=== PATIENT | female | born 1950 | race Caucasian/White ===

== ENCOUNTER 2021-05-02 10:03 | Observation (INO) ==
[2021-05-02] MEDS ORDERED: ACTIVASE CATHFLO 12 MG in NS 250 ML IV 228 ML INTRACATH ONE (10:48)
[2021-05-02] MEDS ORDERED: ANCEF 1 GRAM IV PREMIX* 2 G/100 ML BAG IV ONE (10:57)
[2021-05-02] MEDS ORDERED: LR 1000 ML IV 1,000 ML IV ONE ×3 (10:57→16:12)
[2021-05-02 11:33] VITALS: BMI 22.7
[2021-05-02] MEDS ORDERED: HEPARIN SODIUM INJ 5000 UNITS ONE ×2 (11:33→11:54)
[2021-05-02 11:34] LABS: BASOPHILS # (AUTO) 0.1 X10^3/uL (0.0-0.1); BASOPHILS % (AUTO) 1.4 % (0.2-1.0); EOSINOPHILS # (AUTO) 0.1 x10^3/uL (0.0-0.2); EOSINOPHILS % (AUTO) 1.7 % (0.9-2.9); HEMATOCRIT 41.7 % (36.0-47.0); HEMOGLOBIN 14.1 g/dL (12.0-16.0); LYMPHOCYTES # (AUTO) 1.8 X10^3/uL (1.3-2.9); LYMPHOCYTES % (AUTO) 30.3 % (21.0-51.0); MEAN CORPUSCULAR HEMOGLOBIN 31.4 pg (27.0-34.0); MEAN CORPUSCULAR HGB CONC 33.9 g/dL (33.0-35.0); MEAN CORPUSCULAR VOLUME 92.8 fL (80.0-100.0); MEAN PLATELET VOLUME 7.7 fL (7.4-11.0); MONOCYTES # (AUTO) 0.3 x10^3/uL (0.3-0.8); NEUTROPHILS # (AUTO) 3.6 x10^3/uL (2.2-4.8); NEUTROPHILS % (AUTO) 61.6 % (42.0-75.0); PLATELET COUNT 183 X10^3/uL (150.0-450.0); RED BLOOD COUNT 4.49 X10^6/uL (3.5-5.4); WHITE BLOOD COUNT 5.9 X10^3/uL (3.6-10.0)
[2021-05-02] MEDS ORDERED: HEPARIN SODIUM IN D5W 75,000 UNITS/1,500 ML BAG ONE (11:34)
[2021-05-02] MEDS ORDERED: MARCAINE or SENSORCAINE 0.25% WITH EPI IJ ONE ×2 (11:34→11:57)
[2021-05-02 11:47] LABS: ALANINE AMINOTRANSFERASE 13 Units/L (12-78); ALBUMIN 3.7 g/dL (3.4-5.0); ALKALINE PHOSPHATASE 99 Units/L (46-116); ASPARTATE AMINO TRANSFERASE 11 Units/L (15-37); BLOOD UREA NITROGEN 11 mg/dL (7-18); CALCIUM 9.1 mg/dL (8.5-10.1); CARBON DIOXIDE 30.3 mmol/L (21-32); CHLORIDE 106 mmol/L (98-107); CREATININE 0.95 mg/dL (0.55-1.02); SODIUM 141 mmol/L (136-145); TOTAL PROTEIN 8.2 g/dL (6.4-8.2); eGFR NON BLACK RACES > 60 (>60)
[2021-05-02] MEDS ORDERED: HEPARIN SODIUM IN D5W 100,000 UNITS/2,000 ML BAG ONE (11:54)
[2021-05-02] MEDS ORDERED: ACTIVASE CATHFLO ONE (11:54)
[2021-05-02] MEDS ORDERED: NS 1000 ML 1,000 ML ONE ×2 (11:55→16:19)
[2021-05-02] MEDS ORDERED: FENTANYL INJ 100 mcg ONE (12:19)
[2021-05-02] MEDS ORDERED: SUPRANE ONE (12:35)
[2021-05-02] MEDS ORDERED: EPHEDRINE SULFATE INJ ONE (12:35)
[2021-05-02] MEDS ORDERED: NEO-SYNEPHRINE INJ ONE (12:35)
[2021-05-02] MEDS ORDERED: BARHEMSYS INJ IVP PRN (15:35)
[2021-05-02] MEDS ORDERED: ZOFRAN INJ 4 MG VIAL IVP PRN (15:35)
[2021-05-02] MEDS ORDERED: REGLAN INJ 10 MG VIAL IVP PRN (15:35)
[2021-05-02] MEDS ORDERED: PHENERGAN INJ 25 MG IM PRN (15:35)
[2021-05-02] MEDS ORDERED: BENADRYL INJ 50 MG VIAL IVP PRN (15:35)
[2021-05-02] MEDS ORDERED: DILAUDID INJ IVP PRN (15:35)
--- NOTE | 2021-05-02 16:06 | OR.IMMED ---
IMMEDIATE POST-OP NOTE Immediate Post-Op Note Pre-Op Diagnosis: s/p athrectomy right leg now clotted Post-Op Diagnosis: same Procedure: attempted intervention right SFA from above and below, unsuccessful Description of Procedure: see operative summary Surgeon/Toddler Lead Teacher: Janie Findings: as above Specimens Removed: none Estimated Blood Loss: 50 cc Drains: NONE Complications: none Progress Notes: Unable to get wire across takeoff of the left SFA from above or by pedal access. Discharge Progress Notes: admit for observation Condition: Stable Post Hospital Plans and Medications: Discussed with daughter, Will attempt access with wire via popliteal artery next week, Final Diagnosis: left SFA occlusion, ischemic left leg.
[2021-05-02] MEDS ORDERED: PERCOCET TAB 5/325 MG PO PRN (16:24)
--- NOTE | 2021-05-02 16:39 | DR.OPNOTE ---
OP NOTE Pre-Op Diagnosis: Occluded left SFA, ischemic left leg Post-Op Diagnosis: same Procedure Date Date Of Procedure: 05/02/21 Procedure: The patient was taken to the OR and placed in the supine position .Both groins and entire right leg prepped and draped in sterile fashion. Time out for the procedure was done. GIVEN IV sedation . Sedation supervision carried out by me . Ultrasound used to identify the left common femoral artery and the skin over it infiltrated with 0.5 % Marcaine with epinephrine . Ultrasound used to guide puncture of the right left common femoral artery and 0.035 inch Advantage guidewire placed . 5 Slovenian introducer sheath placed over the 0.035 inch guidewire into the left common femoral artery and the RIM catheter placed over the guidewire and placed into the take off of the right limb of the aortic stent graft and power injection used for arteriogram. Patient given 5000 units IV heparin. Heparin, additional 3000 units given at 1 hour. Ultrasonography then used to guide puncture of the right common from artery in antegrade fashion and guidewire placed. 5 Slovenian sheath placed over the guidewire into the right common femoral artery. Diagnostic arteriogram done of right leg and showed right superficial femoral artery occluded at its origin . Distal popliteal artery patent but with some clot in the popliteal artery and runoff via the right anterior tibial artery. Guidewire was able to get through the cap of the right superficial femoral artery at its take off but appeared to go subintimal and I could not get back in the lumen in the distal superficial femoral artery. From the ankle ,using ultrasound, I attempted to puncture the dorsalis pedis, anterior tibial and posterior tibial arteries that were unsuccessful. I could access the vein but not the artery. Repeated attempts at cannulation of the take off of the right superficial femoral artery and repeat ultrasound puncture of the right common femoral artery in another location was still unsuccessful and I continued to dissect in the subintimal plane. For this reason I decided to stop and will plan attempt via the right popliteal artery in the prone position. I will discuss this with the patient and her family. Type of Anesthesia: Local and General Anesthetic w/ETT Anesthesia Comment: began as MAC Findings: With significant vascular disease both for lower extremities. Status post atherectomy and drug-coated balloon angioplasty right superficial femoral artery and balloon angioplasty right anterior tibil artery several weeks ago followed sequentially by intervention of the left leg a couple weeks later. The left leg has continued to do well with improvement in the ankle brachial index. Had been complaining of pain of the right leg with ankle brachial index of 0.[address] angiogram showing complete occlusion of the right superficial femoral artery beginning at the take off from the common femoral artery. Also with evidence of clot in the right popliteal artery. Patient has been on Plavix since the first procedure. Unable to acess the right SFA from above in antegrade fashion of from right pedal access. 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 Specimen/Pathology: none Type of Fluids Used:: Normal Saline and Lactated Ringers EBL: 50 cc Drains/Tubes Placed: None Drains/Tubes Comment: none Cultures: none Complications:: none Needle/Sponge Count:: correct Disposition/Condition: Pt. tolerated procedure without difficulty. Extubated in the OR and taken to PACU in stable condition.
[2021-05-02] MEDS ORDERED: LR 1000 ML IV 1,000 ML IV SCH (17:00)
[2021-05-02 17:36] LABS: BASOPHILS # (AUTO) 0.1 X10^3/uL (0.0-0.1); BASOPHILS % (AUTO) 0.8 % (0.2-1.0); EOSINOPHILS # (AUTO) 0.1 x10^3/uL (0.0-0.2); EOSINOPHILS % (AUTO) 1.7 % (0.9-2.9); HEMATOCRIT 34.5 % (36.0-47.0); HEMOGLOBIN 11.6 g/dL (12.0-16.0); LYMPHOCYTES # (AUTO) 1.9 X10^3/uL (1.3-2.9); LYMPHOCYTES % (AUTO) 22.4 % (21.0-51.0); MEAN CORPUSCULAR HEMOGLOBIN 31.3 pg (27.0-34.0); MEAN CORPUSCULAR HGB CONC 33.5 g/dL (33.0-35.0); MEAN CORPUSCULAR VOLUME 93.6 fL (80.0-100.0); MEAN PLATELET VOLUME 7.8 fL (7.4-11.0); MONOCYTES # (AUTO) 0.4 x10^3/uL (0.3-0.8); MONOCYTES % (AUTO) 5.2 % (0.0-13.0); NEUTROPHILS # (AUTO) 5.8 x10^3/uL (2.2-4.8); NEUTROPHILS % (AUTO) 69.9 % (42.0-75.0); PLATELET COUNT 142 X10^3/uL (150.0-450.0); RED BLOOD COUNT 3.69 X10^6/uL (3.5-5.4); RED CELL DISTRIBUTION WIDTH 14.2 % (11.6-16.5); WHITE BLOOD COUNT 8.3 X10^3/uL (3.6-10.0)
[2021-05-02] MEDS ORDERED: CHECK PATCH XX SCH (21:00)
[2021-05-02] MEDS: CATAPRES TAB 0.1 MG PO SCH ×2 (21:41→21:51)
[2021-05-02] MEDS: NEURONTIN CAP 100 MG PO SCH (21:58)
[2021-05-03] MEDS: NEURONTIN CAP 100 MG PO SCH (05:48)
[2021-05-03] MEDS ORDERED: NICOTINE PATCH TD SCH (09:00)
[2021-05-03] MEDS ORDERED: LIPITOR TAB 40 MG PO SCH (09:00)
[2021-05-03] MEDS ORDERED: DIOVAN TAB 80 MG PO SCH (09:00)
[2021-05-03] MEDS: CATAPRES TAB 0.1 MG PO SCH (09:43)
--- NOTE | 2021-05-03 10:17 | PCM.DCPLAN ---
DISCHARGE SUMMARY Admission Date Date of Admission: 05/02/21 Admission Diagnoses (1) Critical limb ischemia with history of revascularization of same extremity: Status: Acute Discharge Diagnoses Discharge Diagnosis: same Discharge Medications Discharge Medications: Prescriptions: continue all home meds Hospital Course Vital Signs: Temperature 98.1 F Pulse Rate [Bilateral Radial] 89 Pulse Rate 82 Respiratory Rate 20 Blood Pressure [Right Arm] 118/62 Blood Pressure 117/63 O2 Sat by Pulse Oximetry 99 Latest Lab Results: Laboratory Last Values WBC 8.3 X10^3/uL (3.6-10.0) 05/02/21 17:17 RBC 3.69 X10^6/uL (3.5-5.4) 05/02/21 17:17 Hgb 11.6 g/dL (12.0-16.0) L D 05/02/21 17:17 Hct 34.5 % (36.0-47.0) L 05/02/21 17:17 MCV 93.6 fL (80.0-100.0) 05/02/21 17:17 MCH 31.3 pg (27.0-34.0) 05/02/21 17:17 MCHC 33.5 g/dL (33.0-35.0) 05/02/21 17:17 RDW 14.2 % (11.6-16.5) 05/02/21 17:17 Plt Count 142 X10^3/uL (150.0-450.0) L 05/02/21 17:17 MPV 7.8 fL (7.4-11.0) 05/02/21 17:17 Neut % (Auto) 69.9 % (42.0-75.0) 05/02/21 17:17 Lymph % (Auto) 22.4 % (21.0-51.0) 05/02/21 17:17 Monroe % (Auto) 5.2 % (0.0-13.0) 05/02/21 17:17 Eos % (Auto) 1.7 % (0.9-2.9) 05/02/21 17:17 Baso % (Auto) 0.8 % (0.2-1.0) 05/02/21 17:17 Neut # (Auto) 5.8 x10^3/uL (2.2-4.8) H 05/02/21 17:17 Lymph # (Auto) 1.9 X10^3/uL (1.3-2.9) 05/02/21 17:17 Monroe # (Auto) 0.4 x10^3/uL (0.3-0.8) 05/02/21 17:17 Eos # (Auto) 0.1 x10^3/uL (0.0-0.2) 05/02/21 17:17 Baso # (Auto) 0.1 X10^3/uL (0.0-0.1) 05/02/21 17:17 Absolute Nucleated RBC 0.1 /100WBC 05/02/21 17:17 Sodium 141 mmol/L (136-145) 05/02/21 11:25 Corrected Sodium TNP 05/02/21 11:25 Potassium 4.7 mmol/L (3.5-5.1) 05/02/21 11:25 Chloride 106 mmol/L (98-107) 05/02/21 11:25 Carbon Dioxide 30.3 mmol/L (21-32) 05/02/21 11:25 BUN 11 mg/dL (7-18) 05/02/21 11:25 Creatinine 0.95 mg/dL (0.55-1.02) 05/02/21 11:25 Est GFR (MDRD) Af Amer > 60 (>60) 05/02/21 11:25 Est GFR (MDRD) Non-Af > 60 (>60) 05/02/21 11:25 Glucose 100 mg/dL (65-99) H 05/02/21 11:25 Calcium 9.1 mg/dL (8.5-10.1) 05/02/21 11:25 Corrected Calcium TNP 05/02/21 11:25 Total Bilirubin 0.30 mg/dL (0.2-1.0) 05/02/21 11:25 AST 11 Units/L (15-37) L 05/02/21 11:25 ALT 13 Units/L (12-78) 05/02/21 11:25 Alkaline Phosphatase 99 Units/L (46-116) 05/02/21 11:25 Total Protein 8.2 g/dL (6.4-8.2) 05/02/21 11:25 Albumin 3.7 g/dL (3.4-5.0) 05/02/21 11:25 Globulin 4.5 g/dL (2.5-4.5) 05/02/21 11:25 Albumin/Globulin Ratio 0.8 Ratio (1.1-2.1) L 05/02/21 11:25 SARS CoV-2 RNA Rapid ANKIT Negative (NEGATIVE) 05/02/21 11:13 Hospital Course: 70-year-old female who had had bilateral lower extremity atherectomy and drug- coated balloon angioplasty in the past several weeks. History of aortic stent graft therefore both legs were done in antegrade fashion. Complained of pain of the right leg and CT angiogram confirmed occlusion of the right superficial femoral artery at the take off all the way through the popliteal artery with clot in the popliteal artery . I attempted antegrade intervention but could not get a wire down the superficial femoral artery as it went subintimaland I could get back in the lumen and I could not access from pedal access. Patient's hemoglobin post procedures is 11.6. Her foot is cool and has no tissue loss but will need to be addressed. I plan is to bring her back on Friday and approach this in the prone position with needle stick to the right popliteal area to get a wire across the area of occlusion and consider either AngioJet, EKOS and or stenting or combination of all of these. The patient her family understands and agrees to this. I discussed options of transferred to another facility but they want me to do it as I have experience with this. There is no guarantee of success however. Instructions Instructions: Angiogram Angiogram, Care After, [id number] Forms: Excuse From Work or School Precautions for COVID19 Patient Portal Social Distancing
[2021-05-03 12:15] VITALS: BP 121/60
== END 2021-05-03 12:20 | disposition home or self-care (01) ==
LOC: SURG1 10:03 → MED/SURG 10:03
PROVIDERS: ADMIT Surgery; ATTEND Surgery
DX: I10 Essential (primary) hypertension; I74.3 Embolism and thrombosis of arteries of the lower extremities; Z20.822 Contact with and (suspected) exposure to COVID-19; Z87.898 Personal history of other specified conditions; Z72.0 Tobacco use; I71.3 Abdominal aortic aneurysm, ruptured; R60.0 Localized edema; I70.222 Atherosclerosis of native arteries of extremities with rest pain, left leg

== ENCOUNTER 2021-05-07 10:25 | Inpatient (IN) ==
[2021-05-07] MEDS ORDERED: ANCEF 1 GRAM IV PREMIX* 2 G/100 ML BAG IV ONE (11:02)
[2021-05-07] MEDS ORDERED: LR 1000 ML IV 1,000 ML IV ONE (11:02)
[2021-05-07 11:19] VITALS: BMI 22.7
[2021-05-07] MEDS ORDERED: FENTANYL INJ 100 mcg ONE (11:51)
[2021-05-07] MEDS ORDERED: HEPARIN SODIUM INJ 5000 UNITS ONE (13:41)
[2021-05-07] MEDS ORDERED: HEPARIN SODIUM IN D5W 75,000 UNITS/1,500 ML BAG ONE (13:41)
[2021-05-07] MEDS ORDERED: MARCAINE or SENSORCAINE 0.25% WITH EPI IJ ONE (13:41)
[2021-05-07] MEDS ORDERED: ZEMURON 50 MG VIAL ONE (13:49)
[2021-05-07] MEDS ORDERED: BRIDION ONE (13:49)
[2021-05-07] MEDS ORDERED: VERSED ONE (14:05)
[2021-05-07] MEDS ORDERED: SUPRANE ONE (14:05)
[2021-05-07] MEDS ORDERED: DIPRIVAN VIAL ONE (14:05)
[2021-05-07] MEDS ORDERED: ZOFRAN INJ 4 MG VIAL ONE (14:05)
[2021-05-07] MEDS ORDERED: EPHEDRINE SULFATE INJ ONE (14:05)
[2021-05-07] MEDS ORDERED: NS 1000 ML 1,000 ML ONE (14:35)
[2021-05-07] MEDS ORDERED: HEPARIN SODIUM IN D5W 25,000 UNITS/500 ML BAG ONE ×2 (14:55→16:18)
[2021-05-07] MEDS ORDERED: NS 500 ML IV 500 ML IV ONE (16:19)
[2021-05-07] MEDS ORDERED: ACTIVASE CATHFLO ONE (16:19)
[2021-05-07] MEDS ORDERED: ACTIVASE CATHFLO 12 MG in NS 250 ML IV 228 ML INTRACATH ONE ×6 (16:30→17:12)
[2021-05-07] MEDS: ACTIVASE CATHFLO 12 MG in NS 250 ML IV 228 ML INTRACATH SCH (16:30)
[2021-05-07] MEDS ORDERED: PHENERGAN INJ 25 MG IM PRN (16:52)
[2021-05-07] MEDS ORDERED: DILAUDID INJ IVP PRN (16:52)
[2021-05-07] MEDS ORDERED: ZOFRAN INJ 4 MG VIAL IVP PRN (16:52)
[2021-05-07] MEDS ORDERED: BARHEMSYS INJ IVP PRN (16:52)
[2021-05-07] MEDS ORDERED: REGLAN INJ 10 MG VIAL IVP PRN (16:52)
[2021-05-07] MEDS ORDERED: BENADRYL INJ 50 MG VIAL IVP PRN (16:52)
[2021-05-07] MEDS ORDERED: HEPARIN SODIUM IN D5W 25,000 UNITS/500 ML BAG INTRACATH PRN ×2 (17:07→17:20)
--- NOTE | 2021-05-07 17:33 | OR.IMMED ---
IMMEDIATE POST-OP NOTE Immediate Post-Op Note Pre-Op Diagnosis: Critical limb ischemia right leg, thrombosis right superficial femoral artery Post-Op Diagnosis: same Procedure: Retrograde approach of right superficial femoral artery from the right popliteal artery in the prone position. With placement of wire into the right common iliac artery and stent. AngioJet mechanical from back to me right superficial femoral artery, until arteriogram, placement of EKOS thrombolytic catheter for overnight infusion of TPA and reassessment of artery tomorrow. Description of Procedure: see operative summary Surgeon/Senior Procurement Manager: Janie Findings: thrombosis right SFA from takeoff to popliteal artery Specimens Removed: clot from SFA Estimated Blood Loss: 50 cc Drains: NONE Complications: none Admit to ICU for overnight intra-arterial thrombolysis of right SFA Condition: Stable Post Hospital Plans and Medications: TPA by EKOS protocol overnight Final Diagnosis: as above.
[2021-05-07] MEDS ORDERED: NS 500 ML IV 500 ML IV SCH (18:00)
[2021-05-07] MEDS: LR 1000 ML IV 1,000 ML IV SCH (18:07)
[2021-05-07 19:03] LABS: BASOPHILS # (AUTO) 0.1 X10^3/uL (0.0-0.1); BASOPHILS % (AUTO) 0.7 % (0.2-1.0); EOSINOPHILS # (AUTO) 0.2 x10^3/uL (0.0-0.2); EOSINOPHILS % (AUTO) 3.3 % (0.9-2.9); HEMATOCRIT 28.5 % (36.0-47.0); HEMOGLOBIN 9.5 g/dL (12.0-16.0); LYMPHOCYTES # (AUTO) 1.9 X10^3/uL (1.3-2.9); LYMPHOCYTES % (AUTO) 27.9 % (21.0-51.0); MEAN CORPUSCULAR HEMOGLOBIN 31.5 pg (27.0-34.0); MEAN CORPUSCULAR HGB CONC 33.4 g/dL (33.0-35.0); MEAN CORPUSCULAR VOLUME 94.1 fL (80.0-100.0); MONOCYTES # (AUTO) 0.5 x10^3/uL (0.3-0.8); MONOCYTES % (AUTO) 6.9 % (0.0-13.0); NEUTROPHILS # (AUTO) 4.2 x10^3/uL (2.2-4.8); NEUTROPHILS % (AUTO) 61.2 % (42.0-75.0); PLATELET COUNT 166 X10^3/uL (150.0-450.0); RED BLOOD COUNT 3.03 X10^6/uL (3.5-5.4); RED CELL DISTRIBUTION WIDTH 13.7 % (11.6-16.5); WHITE BLOOD COUNT 6.9 X10^3/uL (3.6-10.0)
[2021-05-07] MEDS: CATAPRES TAB 0.1 MG PO SCH (20:26)
[2021-05-07] MEDS: NEURONTIN CAP 100 MG PO SCH ×2 (21:54→22:16)
--- NOTE | 2021-05-07 22:26 | DR.OPNOTE ---
OP NOTE Pre-Op Diagnosis: Limb threatening ischemia right leg Post-Op Diagnosis: same Procedure Date Date Of Procedure: 05/07/21 Procedure: The patient was taken to the operating suite and placed in the supine position and general endotracheal anesthesia induced. Patient rolled over in the prone position and the entire right leg prepped and draped in sterile fashion. Ultrasonography used to identify the right popliteal artery and the skin overlying it infiltrated with 0.5 % Marcaine with epinephrine. Ultrasonography used to guide puncture of the right popliteal artery and a 0.014 inch guidewire placed and skin over the wire incised and a micro sheath placed. The 0.014 inch guidewire exchanged for a 0.035 inch guidewire and the micro sheath exchanged for a 5 Syriac short vascular sheath. Trailblazer catheter was used to perform diagnostic arteriogram of the right superficial femoral artery showing significant clot in the supers femoral artery. I was able to guide the guidewire all the way into the right common iliac artery through the previously placed aortic and iliac stent graft. Patient was given 5000 units of IV heparin. At this point we placed the [employer] AngioJet device over the 0.035 inch guidewire and performed mechanical thrombolysis of the right superficial femoral artery going antegrade and retrograde times 2 passes each. Repeat arteriogram still showed the clot in the right SFA and we alternated between filling the right profunda and the right proximal superficial femoral artery. For this reason an EKOS catheter of 50 cm was placed over the guidewire over the length of the entire right superficial femoral artery and the wire removed and the inner cannula for the sheath placed. 3 mg of TPA placed through the drug port and this hooked up to a drip of TPA at 1mg/hr . Coolant was placed in the coolant port at 35 mL and heparin through the side port of the vascular sheath in the popliteal artery to run at 500 units of heparin per hour. Dressing applied the patient taken to the ICU for further care after extubation. She tolerated extubation well. In the recovery room the patient had good Doppler signal in the left posterior tibial but I could not get good signals of either the dorsalis pedis or the posterior tibial on the right leg The patient will need thrombolysis overnight and we will repeat studies in 24 to 48 hours. Type of Anesthesia: Local and General Anesthetic w/ETT Anesthesia Comment: Patient done in the prone position Findings: thrombosis of right superficial femoral artery from the take off of the right SFA to the popliteal artery. Specimen/Pathology: none Type of Fluids Used:: Lactated Ringers EBL: 50 cc Drains/Tubes Placed: Suarez (Remained for thrombolysis) Complications:: none Needle/Sponge Count:: correct Disposition/Condition: Pt. tolerated procedure without difficulty. Taken to PACU in stable condition.
[2021-05-07] MEDS: DILAUDID INJ IVP PRN (23:49)
[2021-05-08] MEDS: DILAUDID INJ IVP PRN ×3 (03:49→13:15)
[2021-05-08] MEDS: ACTIVASE CATHFLO 12 MG in NS 250 ML IV 228 ML INTRACATH SCH (03:53)
[2021-05-08] MEDS: LR 1000 ML IV 1,000 ML IV SCH ×2 (04:37→17:17)
[2021-05-08] MEDS: NS 500 ML IV 500 ML IV SCH ×2 (05:53→08:22)
[2021-05-08 06:18] LABS: BASOPHILS % (AUTO) 0.4 % (0.2-1.0); EOSINOPHILS % (AUTO) 0.6 % (0.9-2.9); HEMATOCRIT 26.7 % (36.0-47.0); LYMPHOCYTES # (AUTO) 0.5 X10^3/uL (1.3-2.9); MEAN CORPUSCULAR HEMOGLOBIN 31.5 pg (27.0-34.0); MEAN CORPUSCULAR HGB CONC 33.8 g/dL (33.0-35.0); MEAN PLATELET VOLUME 7.8 fL (7.4-11.0); MONOCYTES # (AUTO) 0.2 x10^3/uL (0.3-0.8); MONOCYTES % (AUTO) 3.6 % (0.0-13.0); NEUTROPHILS # (AUTO) 5.9 x10^3/uL (2.2-4.8); NEUTROPHILS % (AUTO) 87.4 % (42.0-75.0); PLATELET COUNT 147 X10^3/uL (150.0-450.0); RED BLOOD COUNT 2.87 X10^6/uL (3.5-5.4); RED CELL DISTRIBUTION WIDTH 14.2 % (11.6-16.5); WHITE BLOOD COUNT 6.8 X10^3/uL (3.6-10.0)
[2021-05-08 12:33] LABS: BASOPHILS % (AUTO) 0.5 % (0.2-1.0); EOSINOPHILS % (AUTO) 0.3 % (0.9-2.9); HEMOGLOBIN 9.5 g/dL (12.0-16.0); LYMPHOCYTES % (AUTO) 15.6 % (21.0-51.0); MEAN CORPUSCULAR HEMOGLOBIN 31.4 pg (27.0-34.0); MEAN CORPUSCULAR HGB CONC 33.9 g/dL (33.0-35.0); MEAN CORPUSCULAR VOLUME 92.6 fL (80.0-100.0); MEAN PLATELET VOLUME 8.4 fL (7.4-11.0); MONOCYTES # (AUTO) 0.3 x10^3/uL (0.3-0.8); MONOCYTES % (AUTO) 5.1 % (0.0-13.0); NEUTROPHILS # (AUTO) 4.9 x10^3/uL (2.2-4.8); NEUTROPHILS % (AUTO) 78.5 % (42.0-75.0); PLATELET COUNT 135 X10^3/uL (150.0-450.0); RED BLOOD COUNT 3.03 X10^6/uL (3.5-5.4); RED CELL DISTRIBUTION WIDTH 14.1 % (11.6-16.5); WHITE BLOOD COUNT 6.2 X10^3/uL (3.6-10.0)
[2021-05-08] MEDS ORDERED: HEPARIN SODIUM INJ 5000 UNITS ONE (13:17)
[2021-05-08] MEDS ORDERED: MARCAINE or SENSORCAINE 0.25% WITH EPI IJ ONE (13:17)
[2021-05-08] MEDS ORDERED: HEPARIN SODIUM IN D5W 75,000 UNITS/1,500 ML BAG ONE (13:18)
[2021-05-08] MEDS ORDERED: FENTANYL INJ 100 mcg ONE (13:20)
[2021-05-08] MEDS ORDERED: EPHEDRINE SULFATE INJ ONE (15:04)
[2021-05-08] MEDS ORDERED: PROTAMINE SULFATE 50 MG VIAL ONE (15:04)
[2021-05-08] MEDS ORDERED: VERSED ONE (15:04)
[2021-05-08] MEDS ORDERED: ZOFRAN INJ 4 MG VIAL ONE (15:04)
[2021-05-08] MEDS ORDERED: NEO-SYNEPHRINE INJ ONE (15:04)
[2021-05-08] MEDS ORDERED: DIPRIVAN VIAL ONE (15:04)
[2021-05-08] MEDS ORDERED: XYLOCAINE 2 % (PLAIN) ONE (15:04)
[2021-05-08] MEDS ORDERED: ZEMURON 50 MG VIAL ONE (15:04)
[2021-05-08] MEDS ORDERED: LTA KIT LIDOCAINE 4% ONE (15:04)
[2021-05-08] MEDS: NEURONTIN CAP 100 MG PO SCH ×2 (15:15→22:57)
[2021-05-08] MEDS: CATAPRES TAB 0.1 MG PO SCH ×2 (15:15→22:56)
[2021-05-08] MEDS: LIPITOR TAB 40 MG PO SCH (15:16)
[2021-05-08] MEDS: DIOVAN TAB 80 MG PO SCH (15:16)
[2021-05-08] MEDS ORDERED: BETADINE SOLN ONE (15:29)
[2021-05-08] MEDS ORDERED: NS 1000 ML 1,000 ML ONE (15:45)
--- NOTE | 2021-05-08 16:41 | OR.IMMED ---
IMMEDIATE POST-OP NOTE Immediate Post-Op Note Pre-Op Diagnosis: Ischemic right leg with evidence of thrombosis and possible pr oximal intimal flap. Post-Op Diagnosis: same Procedure: On table arteriogram of the right iliac vessels in the right common femoral superficial femoral arteries as well as the right profunda.. Intravascular U/S right SFA, common femoral and right iliac arteries. Description of Procedure: see operative summary Surgeon/Fundraising Coordinator: Janie Findings: Improvement of resolution of clot in the mid-to distal superficial femoral artery. Still with evidence of possible intimal flap and the proximal common from artery with limitation of flow. Specimens Removed: none Estimated Blood Loss: minimal Complications: none Discharge Progress Notes: Will discuss options with patient and family Condition: Stable Final Diagnosis: as above
[2021-05-08] MEDS: PERCOCET TAB 5/325 MG PO PRN (22:15)
[2021-05-09] MEDS: LR 1000 ML IV 1,000 ML IV SCH ×2 (03:30→10:44)
[2021-05-09] MEDS: PERCOCET TAB 5/325 MG PO PRN (05:15)
[2021-05-09] MEDS: DIOVAN TAB 80 MG PO SCH (08:35)
[2021-05-09] MEDS: NEURONTIN CAP 100 MG PO SCH (08:35)
[2021-05-09] MEDS: LIPITOR TAB 40 MG PO SCH (08:35)
[2021-05-09] MEDS: CATAPRES TAB 0.1 MG PO SCH ×2 (08:35→08:43)
[2021-05-09] MEDS ORDERED: LOVENOX INJ 40 MG SYR SC SCH (09:00)
--- NOTE | 2021-05-09 10:46 | DR.OPNOTE ---
OP NOTE Pre-Op Diagnosis: Thrombosis right superficial femoral artery after attempt to cross complet Post-Op Diagnosis: same, intimal flap of right common femoral artery. Procedure Date Date Of Procedure: 05/08/21 Procedure: This patient was taken to the operating suite and general endotracheal anesthesia induced. She was placed in the prone position as she had a vascular access catheter in the right popliteal artery with an EKOS thrombolytic catheter in place that had been infusing TPA overnight .' TPA had been turned off several hours before. Timeout for the procedure obtained. The thrombolytic catheter was removed and exchanged for a 0.018 inch guidewire which was placed all the way into the right common iliac stent. Trailblazer catheter placed over the wire and the wire removed. Arteriogram performed through thettrailblazer catheter starting in the common iliac artery showed good flow in the common iliac artery with good flow in the large right profunda with reconstitution of flow in the mid-superficial femoral artery with no evidence of significant thrombosis. The proximal common femoral artery could not be seen well. At this point a 0.018 inch OPTi cross vascular ultrasound probe was placed over the wire and intravascular ultrasound carried out showing the wire to be true lumen from where we entered the popliteal artery all the way to the common femoral artery. Although it appeared to be in the lumen there was a significant flap in the common femoral artery with abnormal appearing flow of the common femoral artery and normal flow in the external iliac iliac artery.At this point I made a decisions not to place stents or balloon this as is it would possibly negatively impact my decision-making process in the future. The plan is for open right femoral endarterectomy and patch angioplasty and at that time perform additional arteriograms to see if additional procedures need to be done. The superficial femoral artery has already been ballooned open with a drug-coated balloon therefore it should do well. Her foot remains warm and is not in jeopardy at this time. Type of Anesthesia: General Anesthetic w/ETT Findings: thrombolysis has cleaned up right SFA thrombosis, IVUS showed intimal flap of the right common femoral artery which I could not get back into true lumen of the right common femoral artery. right foot is warm probably due to flow from the large right profunda artery. Specimen/Pathology: none Type of Fluids Used:: Lactated Ringers Total Amount of Fluid Infused:: 700 Urine output: 30 EBL: 25 Drains/Tubes Placed: None Complications:: none Needle/Sponge Count:: correct Disposition/Condition: Pt. tolerated procedure without difficulty. Extubated in the OR and taken to PACU in stable condition.
--- NOTE | 2021-05-09 17:22 | PCM.DCPLAN ---
DISCHARGE SUMMARY Admission Date Date of Admission: 05/07/21 Discharge Date Discharge Date: 05/09/21 Admission Diagnoses (1) Critical limb ischemia with history of revascularization of same extremity: Status: Acute Discharge Diagnoses Discharge Diagnosis: same Discharge Medications Discharge Medications: Home Medication List atorvastatin 40 mg PO HS 05/08/21 [History] gabapentin 100 mg PO TID 05/08/21 [History] oxycodone-acetaminophen [Percocet] 1 tab PO Q6H PRN #40 tab MDD 4 05/09/21 [Rx] oxycodone-acetaminophen [Percocet] 1 tab PO Q6H PRN #40 tab MDD 6 05/09/21 [Rx] Prescriptions: oxycodone-acetaminophen [Percocet] Wilver Lima oxycodone-acetaminophen [Percocet] Wilver Lima Hospital Course Vital Signs: Temperature 99.1 F Pulse Rate [Left Radial] 86 Pulse Rate 89 Respiratory Rate 18 Blood Pressure [Right Arm] 109/53 Blood Pressure 111/61 O2 Sat by Pulse Oximetry 93 Latest Lab Results: Laboratory Last Values WBC 6.2 X10^3/uL (3.6-10.0) 05/08/21 11:22 RBC 3.03 X10^6/uL (3.5-5.4) L 05/08/21 11:22 Hgb 9.5 g/dL (12.0-16.0) L 05/08/21 11:22 Hct 28.0 % (36.0-47.0) L 05/08/21 11:22 MCV 92.6 fL (80.0-100.0) 05/08/21 11:22 MCH 31.4 pg (27.0-34.0) 05/08/21 11:22 MCHC 33.9 g/dL (33.0-35.0) 05/08/21 11:22 RDW 14.1 % (11.6-16.5) 05/08/21 11:22 Plt Count 135 X10^3/uL (150.0-450.0) L 05/08/21 11:22 MPV 8.4 fL (7.4-11.0) 05/08/21 11:22 Neut % (Auto) 78.5 % (42.0-75.0) H 05/08/21 11:22 Lymph % (Auto) 15.6 % (21.0-51.0) L 05/08/21 11:22 Dixie % (Auto) 5.1 % (0.0-13.0) 05/08/21 11:22 Eos % (Auto) 0.3 % (0.9-2.9) L 05/08/21 11:22 Baso % (Auto) 0.5 % (0.2-1.0) 05/08/21 11:22 Neut # (Auto) 4.9 x10^3/uL (2.2-4.8) H 05/08/21 11:22 Lymph # (Auto) 1.0 X10^3/uL (1.3-2.9) L 05/08/21 11:22 Dixie # (Auto) 0.3 x10^3/uL (0.3-0.8) 05/08/21 11:22 Eos # (Auto) 0.0 x10^3/uL (0.0-0.2) 05/08/21 11:22 Baso # (Auto) 0.0 X10^3/uL (0.0-0.1) 05/08/21 11:22 Absolute Nucleated RBC 0.1 /100WBC 05/08/21 11:22 APTT 29.5 SECONDS (22.9-36.5) 05/08/21 11:22 PTT Comment - 05/08/21 11:22 Fibrinogen 263 mg/dL (239-489) 05/08/21 11:22 Hospital Course: 70-year-old female who had a history of rest pain and claudication of both lower extremities who underwent antegrade approach with atherectomy and drug-coated balloon angioplasty of vessels of both lower extremities several weeks previously. Anterior approach was done because of an aortic stent graft to repair a ruptured abdominal aortic aneurysm from the past. The left leg has done well and ankle brachial index is near-normal now .She complained of pain of the right leg and study showed evidence of complete occlusion of the right superficial femoral artery beginning at the take off from the common femoral artery. Attempt last week was done in antegrade fashion but I could not get out of the subintimal flap. She was brought back and underwent placement of the wire through the right popliteal artery using ultrasound guidance. I could get the wire up into the stent of the right common iliac. She underwent thrombolysis of the right superficial femoral artery overnight using TPA and the EKOS catheter. Yesterday she was taken back and repeat study showed removal of the thrombus in the right superficial femoral artery but there appeared to be in intimal flap in the common from artery with flow above and below it depending on placement of a trailblazer catheter. Intravascular ultrasound confirmed the flap. I was unable to get the wire back into the true lumen proximally. Patient has a large profunda and the right foot remains warm and there is no evidence of loss of tissue however the plan is to reestablish normal flow. I discussed this at length with the family and the patietn and we will plan right common femoral endarterectomy on 21 May with patch angioplasty. At that time additional arteriograms will be carried out. She we discharged home at this time on daily aspirin, her usual medications and Percocet 5 mg tablets, one every 6 hours PRN pain. My office will get her scheduled for 21 May. Instructions Instructions: Angiogram Angiogram, Care After, [id number] Embolization, Care After How to Change Your Dressing Atherectomy Bleeding Precautions When on Anticoagulant Therapy, Adult Partial Thromboplastin Time Test Forms: Excuse From Work or School Precautions for COVID19 Patient Portal Social Distancing
[2021-05-09 17:37] VITALS: BP 164/74
== END 2021-05-09 17:40 | disposition home or self-care (01) | DRG 300 ==
LOC: MED/SURG 10:25 → SURG1 10:25 → OBSVTOIN 17:02
PROVIDERS: ADMIT Surgery; ATTEND Surgery
DX: I70.221 Atherosclerosis of native arteries of extremities with rest pain, right leg; I74.3 Embolism and thrombosis of arteries of the lower extremities; I10 Essential (primary) hypertension

== ENCOUNTER 2021-08-09 08:17 | Observation (INO) ==
[2021-08-09] MEDS ORDERED: LR 1,000 ML IV 1,000 ML IV ONE ×2 (08:31→13:45)
[2021-08-09] MEDS ORDERED: ANCEF 1 GRAM IV PREMIX* 2 G/100 ML BAG IV ONE (08:31)
[2021-08-09] MEDS ORDERED: FENTANYL VIAL INJ 100 mcg ONE (09:46)
[2021-08-09] MEDS ORDERED: KETALAR ONE (09:46)
[2021-08-09] MEDS ORDERED: DIPRIVAN VIAL 20 ML ONE (09:46)
[2021-08-09] MEDS ORDERED: OFIRMEV IV 1000 MG VIAL 1,000 MG/100 ML VIAL IV ONE (09:47)
[2021-08-09] MEDS ORDERED: HEPARIN SODIUM INJ 5000 UNITS ONE (09:50)
[2021-08-09] MEDS ORDERED: HEPARIN SODIUM IN D5W 75,000 UNITS/1,500 ML BAG ONE (09:50)
[2021-08-09] MEDS ORDERED: MARCAINE 0.5% ONE (09:50)
[2021-08-09] MEDS ORDERED: XYLOCAINE 2 % (PLAIN) ONE (10:08)
[2021-08-09] MEDS ORDERED: EPHEDRINE SULFATE INJ ONE (10:08)
[2021-08-09] MEDS ORDERED: VERSED ONE (10:08)
[2021-08-09] MEDS ORDERED: ZOFRAN INJ 4 MG VIAL ONE (10:08)
[2021-08-09] MEDS ORDERED: ULTANE GAS IN ONE ×2 (10:08→13:45)
[2021-08-09] MEDS ORDERED: DIPRIVAN VIAL ONE (10:08)
[2021-08-09] MEDS ORDERED: NEO-SYNEPHRINE INJ ONE (10:08)
[2021-08-09] MEDS ORDERED: DILAUDID INJ IVP PRN ×2 (14:22→14:47)
[2021-08-09] MEDS ORDERED: PERCOCET TAB 5/325 MG PO PRN (14:22)
[2021-08-09] MEDS ORDERED: BENADRYL INJ 50 MG VIAL IVP PRN (14:47)
[2021-08-09] MEDS ORDERED: BARHEMSYS INJ IVP PRN (14:47)
--- NOTE | 2021-08-09 15:13 | OR.IMMED ---
IMMEDIATE POST-OP NOTE Immediate Post-Op Note Pre-Op Diagnosis: ischemic right leg Post-Op Diagnosis: same Procedure: right common femoral and proximal SFA endarterectomy and patch angioplasty Description of Procedure: see operative summary Surgeon/Resource Room Special Education Teacher: Janie Findings: as above Specimens Removed: plaque Estimated Blood Loss: 300 cc Drains: NONE Complications: none Progress Notes: admit for observation Final Diagnosis: as above
[2021-08-09] MEDS: LR 1,000 ML IV 1,000 ML IV SCH (15:49)
[2021-08-09] MEDS ORDERED: CATAPRES TAB 0.1 MG ONE (19:39)
[2021-08-09] MEDS: CATAPRES TAB 0.1 MG PO SCH (22:42)
[2021-08-10] MEDS: LR 1,000 ML IV 1,000 ML IV SCH (03:51)
[2021-08-10] MEDS: CATAPRES TAB 0.1 MG PO SCH (08:21)
[2021-08-10] MEDS ORDERED: LOVENOX INJ 40 MG SYR SC SCH (09:00)
[2021-08-10] MEDS ORDERED: PLAVIX PO SCH (09:00)
[2021-08-10] MEDS ORDERED: DIOVAN TAB 80 MG PO SCH (09:00)
[2021-08-10] MEDS ORDERED: LIPITOR TAB 40 MG PO SCH (09:00)
[2021-08-10 09:03] VITALS: BP 125/63
--- NOTE | 2021-08-10 15:51 | W.DIS.FURT ---
Summary of Discharge Discharge Summary of Date Date of Exam: 08/10/21 Admission Date Date of Admission: 08/09/21 Admission Diagnosis Hospital Course: This patient is a 70 year old female who presented to me originally in March of this year with history of rest pain of both lower extremities. She has a significant history of tobacco abuse and had a stent graft repair of an aortic aneurysm in the past. At that time she underwent arterial intervention of the right lower extremity via an antegrade approach and within two weeks underwent intervention of the left leg. The left leg markedly improved with ankle brachial index of 0. 91. The right leg did not improve and had an index of approximately 0. 41. She was taken back to the operating room where she underwent interventions via antegrade and retrograde approaches by the popliteal artery and flow could be re-established except for a dense area in the right common femoral artery. She was scheduled for right femoral endarterectomy, patch angioplasty and possible thrombectomy but developed cCovid requiring an extended hospitalization and subsequently the hospital's operating rooms were closed and she presents now with continued pain in the right lower extremity. She was taking to the operating suite yesterday ,August 09 where she underwent right femoral endarterectomy and Patch angioplasty. Attempts were made to perform thrombectomy of the right superficial femoral artery but no back bleeding was noted. On table arteriogram showed complete long segment occlusion of the right superficial femoral artery. She did have good flow through the profunda artery now. She has done well and has a right foot which is warm with a good doppler signal in the popliteal artery and a weak signal in the right door dorsalis pedis and absent in the posterior tibial. She complains of some numbness of her toes. She is otherwise otherwise doing well and walking well. She will be discharged home on her usual medications to nclude Percocet 5 milligram tablets every 6 hoursPRN pain. She is on aspirin an d I will consider Xarelto in the near future. If she hascontinued pain in the right leg she may require a bypass of the right leg. I had discussed this with her and her daughter. She will see me in the office in one week. Vital Signs: Vital Signs (72 hours) 08/09/21 08:47 08/09/21 14:19 08/09/21 14:24 Temperature 97.1 F L 98.6 F Pulse Rate 94 H 84 85 Pulse Rate [Left Radial] Respiratory Rate 20 18 18 Blood Pressure 160/84 91/52 81/52 Blood Pressure [Right Arm] O2 Sat by Pulse Oximetry 99 91 L 91 L 08/09/21 14:29 08/09/21 14:34 08/09/21 14:39 Temperature Pulse Rate 85 85 86 Pulse Rate [Left Radial] Respiratory Rate 19 18 18 Blood Pressure 99/56 92/50 79/52 Blood Pressure [Right Arm] O2 Sat by Pulse Oximetry 91 L 98 96 08/09/21 14:44 08/09/21 14:49 08/09/21 14:54 Temperature Pulse Rate 80 82 83 Pulse Rate [Left Radial] Respiratory Rate 19 19 19 Blood Pressure 117/59 103/55 87/55 Blood Pressure [Right Arm] O2 Sat by Pulse Oximetry 96 97 97 08/09/21 14:59 08/09/21 15:04 08/09/21 15:09 Temperature Pulse Rate 85 81 80 Pulse Rate [Left Radial] Respiratory Rate 18 18 19 Blood Pressure 91/50 92/53 104/58 Blood Pressure [Right Arm] O2 Sat by Pulse Oximetry 98 98 99 08/09/21 15:14 08/09/21 15:19 08/09/21 15:40 Temperature 97.9 F Pulse Rate 83 81 Pulse Rate [Left Radial] 82 Respiratory Rate 19 19 18 Blood Pressure 109/51 107/55 Blood Pressure [Right Arm] 102/55 O2 Sat by Pulse Oximetry 98 98 95 08/09/21 15:55 08/09/21 16:10 08/09/21 16:25 Temperature 97.5 F L 97.5 F L 97.4 F L Pulse Rate Pulse Rate [Left Radial] 81 80 83 Respiratory Rate 16 18 17 Blood Pressure Blood Pressure [Right Arm] 94/52 89/51 96/55 O2 Sat by Pulse Oximetry 99 99 97 08/09/21 16:40 08/09/21 17:40 08/09/21 18:40 Temperature 97.4 F L 97.9 F 98.0 F Pulse Rate Pulse Rate [Left Radial] 85 87 91 H Respiratory Rate 17 18 18 Blood Pressure Blood Pressure [Right Arm] 95/57 97/55 95/53 O2 Sat by Pulse Oximetry 98 96 97 08/09/21 19:40 08/09/21 20:40 08/10/21 00:00 Temperature 97.9 F 97.8 F 98.2 F Pulse Rate Pulse Rate [Left Radial] 90 90 83 Respiratory Rate 17 17 19 Blood Pressure Blood Pressure [Right Arm] 89/54 96/54 96/59 O2 Sat by Pulse Oximetry 95 94 L 93 L 08/10/21 04:00 08/10/21 08:00 Temperature 98.2 F 98.5 F Pulse Rate Pulse Rate [Left Radial] 79 86 Respiratory Rate 19 18 Blood Pressure Blood Pressure [Right Arm] 105/54 125/63 O2 Sat by Pulse Oximetry 94 L 94 L Reason For Visit: THROMBECTOMY Discharge Date Discharge Date: 08/10/21 Discharge Diagnosis All Active Problems (Updated 08/10/21 @ 15:48 by Wilver Lima) COVID-19 (Acute) Patient left without being seen (Acute) Critical limb ischemia with history of revascularization of same extremity (Acute) Peripheral vascular disease (Acute) Plan of Treatment: Continue with present treatment and follow up plan. Pt is to keep follow up appointment as instructed and take medications as ordered. Discharge Medications Discharge Medications: diazepam [From Valium] Allergy (Intermediate, Verified 05/02/21 11:20) ants crawling on skin Sulfa (Sulfonamide Antibiotics) [SULFA] Allergy (Mild, Verified 05/02/21 11:20) fever New Prescriptions aspirin 81 mg PO ONCE #90 cap 08/10/21 [Rx] oxycodone-acetaminophen [Percocet] 1 tab PO Q8H PRN #30 tab MDD 6 08/10/21 [Rx] Follow up and Referral Follow Up: Dr Lima 1 Week Discharge Disposition Assessment: see hospital course above Discharge Disposition: good Discharge Condition: good Discharge Plan Discharge Plan Hospital Course: This patient is a 70 year old female who presented to me originally in March of this year with history of rest pain of both lower extremities. She has a significant history of tobacco abuse and had a stent graft repair of an aortic aneurysm in the past. At that time she underwent arterial intervention of the right lower extremity via an antegrade approach and within two weeks underwent intervention of the left leg. The left leg markedly improved with ankle brachial index of 0. 91. The right leg did not improve and had an index of approximately 0. 41. She was taken back to the operating room where she underwent interventions via antegrade and retrograde approaches by the popliteal artery and flow could be re-established except for a dense area in the right common femoral artery. She was scheduled for right femoral endarterectomy, patch angioplasty and possible thrombectomy but developed cCovid requiring an extended hospitalization and subsequently the hospital's operating rooms were closed and she presents now with continued pain in the right lower extremity. She was taking to the operating suite yesterday ,August 09 where she underwent right femoral endarterectomy and Patch angioplasty. Attempts were made to perform thrombectomy of the right superficial femoral artery but no back bleeding was noted. On table arteriogram showed complete long segment occlusion of the right superficial femoral artery. She did have good flow through the profunda artery now. She has done well and has a right foot which is warm with a good doppler signal in the popliteal artery and a weak signal in the right door dorsalis pedis and absent in the posterior tibial. She complains of some numbness of her toes. She is otherwise otherwise doing well and walking well. She will be discharged home on her usual medications to nclude Percocet 5 milligram tablets every 6 hoursPRN pain. She is on aspirin an d I will consider Xarelto in the near future. If she hascontinued pain in the right leg she may require a bypass of the right leg. I had discussed this with her and her daughter. She will see me in the office in one week. Patient Disposition: 01 HOME, SELF-CARE Condition: Stable Health Concerns: Post Hospitalization: new medications and changes needed to prevent readmission or further decline. Pt educated and given instructions on all concerns. Care Plan Goals: Care of right leg with resolution of pain. Plan of Treatment: Continue with present treatment and follow up plan. Pt is to keep follow up appointment as instructed and take medications as ordered. Assessment: see hospital course above Prescription drug monitoring program results: PDMP reviewed and no concerns identified Prescriptions: New aspirin 81 mg capsule 81 mg PO ONCE Qty: 90 RF: 0 oxycodone-acetaminophen [Percocet] 5-325 mg tablet 1 tab PO Q8H MDD 6 PRNQty: 30 RF: 0 Continued atorvastatin 40 mg tablet 40 mg PO HS RF: 0 valsartan 80 mg Tablet 80 mg PO DAILY RF: 0 Orders to Discharge Patient Discharge Orders: Discharge (Routine); Ordered 08/10/21 Ordered By: Wilver Lima Follow ups/Referrals Follow ups/Referrals: Wilver Lima [STAFF PHYSICIAN] - 08/14/21 2:30 pm Instructions Instructions: Peripheral Vascular Disease, [id number], COVID-19 Frequently Asked Questions, Frequently Asked Questions About COVID-19 Vaccination - [facility] [place][NOTE 3] (01/30/2021), Risks and Benefits of Endovascular Treatment for an Ischemic Stroke, Mechanical Thrombectomy for Ischemic Stroke, [id number] Stand Alone Forms: Excuse From Work or School, Precautions for COVID19, [facility], Patient Portal, Social Distancing
--- NOTE | 2021-08-10 15:52 | W.DIS.FURT ---
Summary of Discharge Discharge Summary of Date Date of Exam: 08/09/21 Admission Diagnosis Hospital Course: This patient is a 70 year old female who presented to me originally in March of this year with history of rest pain of both lower extremities. She has a significant history of tobacco abuse and had a stent graft repair of an aortic aneurysm in the past. At that time she underwent arterial intervention of the right lower extremity via an antegrade approach and within two weeks underwent intervention of the left leg. The left leg markedly improved with ankle brachial index of 0. 91. The right leg did not improve and had an index of approximately 0. 41. She was taken back to the operating room where she underwent interventions via antegrade and retrograde approaches by the popliteal artery and flow could be re-established except for a dense area in the right common femoral artery. She was scheduled for right femoral endarterectomy, patch angioplasty and possible thrombectomy but developed cCovid requiring an extended hospitalization and subsequently the hospital's operating rooms were closed and she presents now with continued pain in the right lower extremity. She was taking to the operating suite yesterday ,August 09 where she underwent right femoral endarterectomy and Patch angioplasty. Attempts were made to perform thrombectomy of the right superficial femoral artery but no back bleeding was noted. On table arteriogram showed complete long segment occlusion of the right superficial femoral artery. She did have good flow through the profunda artery now. She has done well and has a right foot which is warm with a good doppler signal in the popliteal artery and a weak signal in the right door dorsalis pedis and absent in the posterior tibial. She complains of some numbness of her toes. She is otherwise otherwise doing well and walking well. She will be discharged home on her usual medications to nclude Percocet 5 milligram tablets every 6 hoursPRN pain. She is on aspirin an d I will consider Xarelto in the near future. If she hascontinued pain in the right leg she may require a bypass of the right leg. I had discussed this with her and her daughter. She will see me in the office in one week. Vital Signs: Vital Signs (72 hours) 08/09/21 08:47 08/09/21 14:19 08/09/21 14:24 Temperature 97.1 F L 98.6 F Pulse Rate 94 H 84 85 Pulse Rate [Left Radial] Respiratory Rate 20 18 18 Blood Pressure 160/84 91/52 81/52 Blood Pressure [Right Arm] O2 Sat by Pulse Oximetry 99 91 L 91 L 08/09/21 14:29 08/09/21 14:34 08/09/21 14:39 Temperature Pulse Rate 85 85 86 Pulse Rate [Left Radial] Respiratory Rate 19 18 18 Blood Pressure 99/56 92/50 79/52 Blood Pressure [Right Arm] O2 Sat by Pulse Oximetry 91 L 98 96 08/09/21 14:44 08/09/21 14:49 08/09/21 14:54 Temperature Pulse Rate 80 82 83 Pulse Rate [Left Radial] Respiratory Rate 19 19 19 Blood Pressure 117/59 103/55 87/55 Blood Pressure [Right Arm] O2 Sat by Pulse Oximetry 96 97 97 08/09/21 14:59 08/09/21 15:04 08/09/21 15:09 Temperature Pulse Rate 85 81 80 Pulse Rate [Left Radial] Respiratory Rate 18 18 19 Blood Pressure 91/50 92/53 104/58 Blood Pressure [Right Arm] O2 Sat by Pulse Oximetry 98 98 99 08/09/21 15:14 08/09/21 15:19 08/09/21 15:40 Temperature 97.9 F Pulse Rate 83 81 Pulse Rate [Left Radial] 82 Respiratory Rate 19 19 18 Blood Pressure 109/51 107/55 Blood Pressure [Right Arm] 102/55 O2 Sat by Pulse Oximetry 98 98 95 08/09/21 15:55 08/09/21 16:10 08/09/21 16:25 Temperature 97.5 F L 97.5 F L 97.4 F L Pulse Rate Pulse Rate [Left Radial] 81 80 83 Respiratory Rate 16 18 17 Blood Pressure Blood Pressure [Right Arm] 94/52 89/51 96/55 O2 Sat by Pulse Oximetry 99 99 97 08/09/21 16:40 08/09/21 17:40 08/09/21 18:40 Temperature 97.4 F L 97.9 F 98.0 F Pulse Rate Pulse Rate [Left Radial] 85 87 91 H Respiratory Rate 17 18 18 Blood Pressure Blood Pressure [Right Arm] 95/57 97/55 95/53 O2 Sat by Pulse Oximetry 98 96 97 08/09/21 19:40 08/09/21 20:40 08/10/21 00:00 Temperature 97.9 F 97.8 F 98.2 F Pulse Rate Pulse Rate [Left Radial] 90 90 83 Respiratory Rate 17 17 19 Blood Pressure Blood Pressure [Right Arm] 89/54 96/54 96/59 O2 Sat by Pulse Oximetry 95 94 L 93 L 08/10/21 04:00 08/10/21 08:00 Temperature 98.2 F 98.5 F Pulse Rate Pulse Rate [Left Radial] 79 86 Respiratory Rate 19 18 Blood Pressure Blood Pressure [Right Arm] 105/54 125/63 O2 Sat by Pulse Oximetry 94 L 94 L Reason For Visit: THROMBECTOMY Discharge Diagnosis All Active Problems (Updated 08/10/21 @ 15:48 by Wilver Lima) COVID-19 (Acute) Patient left without being seen (Acute) Critical limb ischemia with history of revascularization of same extremity (Acute) Peripheral vascular disease (Acute) Plan of Treatment: Continue with present treatment and follow up plan. Pt is to keep follow up appointment as instructed and take medications as ordered. Discharge Medications Discharge Medications: diazepam [From Valium] Allergy (Intermediate, Verified 05/02/21 11:20) ants crawling on skin Sulfa (Sulfonamide Antibiotics) [SULFA] Allergy (Mild, Verified 05/02/21 11:20) fever Follow up and Referral Follow Up: Dr Lima 1 Week Discharge Disposition Assessment: see hospital course above Discharge Plan Discharge Plan Hospital Course: This patient is a 70 year old female who presented to me originally in March of this year with history of rest pain of both lower extremities. She has a significant history of tobacco abuse and had a stent graft repair of an aortic aneurysm in the past. At that time she underwent arterial intervention of the right lower extremity via an antegrade approach and within two weeks underwent intervention of the left leg. The left leg markedly improved with ankle brachial index of 0. 91. The right leg did not improve and had an index of approximately 0. 41. She was taken back to the operating room where she underwent interventions via antegrade and retrograde approaches by the popliteal artery and flow could be re-established except for a dense area in the right common femoral artery. She was scheduled for right femoral endarterectomy, patch angioplasty and possible thrombectomy but developed cCovid requiring an exten ded hospitalization and subsequently the hospital's operating rooms were closed and she presents now with continued pain in the right lower extremity. She was taking to the operating suite yesterday ,August 09 where she underwent right femoral endarterectomy and Patch angioplasty. Attempts were made to perform thrombectomy of the right superficial femoral artery but no back bleeding was noted. On table arteriogram showed complete long segment occlusion of the right superficial femoral artery. She did have good flow through the profunda artery now. She has done well and has a right foot which is warm with a good doppler signal in the popliteal artery and a weak signal in the right door dorsalis pedis and absent in the posterior tibial. She complains of some numbness of her toes. She is otherwise otherwise doing well and walking well. She will be discharged home on her usual medications to nclude Percocet 5 milligram tablets every 6 hoursPRN pain. She is on aspirin an d I will consider Xarelto in the near future. If she hascontinued pain in the right leg she may require a bypass of the right leg. I had discussed this with her and her daughter. She will see me in the office in one week. Patient Disposition: 01 HOME, SELF-CARE Condition: Stable Health Concerns: Post Hospitalization: new medications and changes needed to prevent readmission or further decline. Pt educated and given instructions on all concerns. Care Plan Goals: Care of right leg with resolution of pain. Plan of Treatment: Continue with present treatment and follow up plan. Pt is to keep follow up appointment as instructed and take medications as ordered. Assessment: see hospital course above Prescription drug monitoring program results: PDMP reviewed and no concerns identified Prescriptions: New aspirin 81 mg capsule 81 mg PO ONCE Qty: 90 RF: 0 oxycodone-acetaminophen [Percocet] 5-325 mg tablet 1 tab PO Q8H MDD 6 PRNQty: 30 RF: 0 Continued atorvastatin 40 mg tablet 40 mg PO HS RF: 0 valsartan 80 mg Tablet 80 mg PO DAILY RF: 0 Orders to Discharge Patient Discharge Orders: Discharge (Routine); Ordered 08/10/21 Ordered By: Wilver Lima Follow ups/Referrals Follow ups/Referrals: Wilver Lima [STAFF PHYSICIAN] - 08/14/21 2:30 pm Instructions Instructions: Peripheral Vascular Disease, [id number], COVID-19 Frequently Asked Questions, Frequently Asked Questions About COVID-19 Vaccination - [facility] (01/30/2021), Risks and Benefits of Endovascular Treatment for an Ischemic Stroke, Mechanical Thrombectomy for Ischemic Stroke, [id number] Stand Alone Forms: Excuse From Work or School, Precautions for COVID19, [facility], Patient Portal, Social Distancing
--- NOTE | 2021-08-11 15:24 | DR.OPNOTE ---
OP NOTE Pre-Op Diagnosis: Ischemic right leg, s/p failed right leg Peripheral arterial intervention Post-Op Diagnosis: same Procedure Date Date Of Procedure: 08/09/21 Procedure: The patient was taken to the operating suite and placed in the Supine position and general anesthesia induced with an L M A in place for the control of the airway. Both groins and the entire right leg prepped and draped in sterile fashion . Time out for the procedure obtained . Vertical incision was made in the right groin and the right common femoral, right superficial femoral and right profunda arteries dissected free and vessel loops placed around them. The dissection was carried proximally to the distal aspect of the external iliac artery and vessel loop placed around it. The patient was heparinized with 5000 units of intravenous heparin and after three minutes all branches of the right femoral artery occluded with either vessel Loops or a vascular clamps.Additional 3,000 units of intravenous heparin given at 1 hour. We opened the common femoral artery with a number 11 knife blade and Pott's scissors through very dense plaque in the common femoral artery all the way down to the proximal superficial femoral artery which was dissected free with Pen field dissector and removing the plaque in its entirety. All floating material in the femoral artery removed. Number three Brown balloon catheter was placed distally multiple times and a small amount of clot removed but the catheter would not go beyond 30 cm and I could not establish back bleeding . 8 centimeter long by 0. 8 cm bovine pericardial patches x 2 were used to repair the endarterectomy incision. The patches were placed proximally and distally with running 5-0 Prolene suture and the two ends of the patches closed with running 6-0 Prolene. All clamps removed and any leaking areas closed with figures of 8 sutures of 6-0 Prolene suture and flow reestablished with excellent Doppler signal in the right profunda artery. Micropuncture needle used to puncture the iliac artery above the patch and a 0. 012 inch wire placed. Micro-sheath placed over this. Small wire exchanged for a 0. 035 inch wire and microsheath exchanged for a 6 Italian vascular sheath . Attempts to take the wire distally was successful but arteriogram gram showed dye going into the venous structures and I could not get the wire into the [place] vessel distally. I attempted ultrasound-guided puncture of the posterior tibial artery at the ankle but was unsuccessful due to it's mobility. I believe the superficial femoral artery is completely occluded as it has been several months since the initial intervention. See the history and physical for details. At this point I elected to close and re-evaluate the patient. She may require open femoral distal bypass. The right groin incision irrigated with saline. All hemostasis obtained with electrocautery . Subcutaneous tissues closed with two layers of running 2-0 Vicryl suture and the skin closed with skin [place]. She was taken to the recovery room and good condition. The right foot was warm. Anesthesia Comment: general anesthesia with LMA Findings: Completely occluded, dense plaque of the right common femoral artery and proximal superficial femoral artery .Thrombectomy of superficial femoral artery unsuccessful Brown thrombectomy catheter would not go beyond 30 centime ters from the distal right groin. Specimen/Pathology: plaque Type of Fluids Used:: Lactated Ringers Total Amount of Fluid Infused:: 1000 cc Urine output: 500 cc EBL: 300 cc Drains/Tubes Placed: None Complications:: none Needle/Sponge Count:: correct Disposition/Condition: Pt. tolerated procedure without difficulty. Extubated in the OR and taken to PACU in stable condition.
== END 2021-08-10 12:00 | disposition home or self-care (01) ==
LOC: MED/SURG 08:17 → SURG1 08:17
PROVIDERS: ADMIT Surgery; ATTEND Surgery
DX: Z72.0 Tobacco use; Z79.01 Long term (current) use of anticoagulants; I10 Essential (primary) hypertension; I70.221 Atherosclerosis of native arteries of extremities with rest pain, right leg

== ENCOUNTER 2021-09-24 16:00 | Inpatient (IN) ==
[2021-09-24] MEDS ORDERED: LR 1,000 ML IV 1,000 ML IV ONE (19:46)
[2021-09-24] MEDS: LR 1,000 ML IV 1,000 ML IV SCH (20:00)
[2021-09-24] MEDS: PERCOCET TAB 5/325 MG PO PRN (20:00)
[2021-09-24 20:10] LABS: BASOPHILS # (AUTO) 0.1 X10^3/uL (0.0-0.1); BASOPHILS % (AUTO) 0.9 % (0.2-1.0); EOSINOPHILS % (AUTO) 0.1 % (0.9-2.9); HEMATOCRIT 34.7 % (36.0-47.0); HEMOGLOBIN 11.5 g/dL (12.0-16.0); LYMPHOCYTES % (AUTO) 9.2 % (21.0-51.0); MEAN CORPUSCULAR HGB CONC 33.3 g/dL (33.0-35.0); MEAN CORPUSCULAR VOLUME 84.3 fL (80.0-100.0); MONOCYTES # (AUTO) 0.6 x10^3/uL (0.3-0.8); NEUTROPHILS # (AUTO) 9.5 x10^3/uL (2.2-4.8); NEUTROPHILS % (AUTO) 84.8 % (42.0-75.0); PLATELET COUNT 204 X10^3/uL (150.0-450.0); RED BLOOD COUNT 4.12 X10^6/uL (3.5-5.4); RED CELL DISTRIBUTION WIDTH 16.1 % (11.6-16.5); WHITE BLOOD COUNT 11.2 X10^3/uL (3.6-10.0)
[2021-09-24 20:15] LABS: BLOOD UREA NITROGEN 18 mg/dL (7-18); CARBON DIOXIDE 27.2 mmol/L (21-32); CHLORIDE 97 mmol/L (98-107); COR NA(FOR HYPERGLY) 135 mmol/L (136-145); CREATININE 0.86 mg/dL (0.55-1.02); SODIUM 134 mmol/L (136-145); eGFR NON BLACK RACES > 60 (>60)
[2021-09-25] MEDS: PERCOCET TAB 5/325 MG PO PRN (04:00)
[2021-09-25 05:30] LABS: BASOPHILS % (AUTO) 0.5 % (0.2-1.0); EOSINOPHILS % (AUTO) 0.2 % (0.9-2.9); HEMATOCRIT 30.9 % (36.0-47.0); HEMOGLOBIN 10.4 g/dL (12.0-16.0); LYMPHOCYTES # (AUTO) 1.1 X10^3/uL (1.3-2.9); MEAN CORPUSCULAR HEMOGLOBIN 27.9 pg (27.0-34.0); MEAN CORPUSCULAR HGB CONC 33.5 g/dL (33.0-35.0); MEAN CORPUSCULAR VOLUME 83.1 fL (80.0-100.0); MEAN PLATELET VOLUME 8.4 fL (7.4-11.0); MONOCYTES # (AUTO) 0.5 x10^3/uL (0.3-0.8); MONOCYTES % (AUTO) 5.4 % (0.0-13.0); NEUTROPHILS # (AUTO) 7.5 x10^3/uL (2.2-4.8); NEUTROPHILS % (AUTO) 81.9 % (42.0-75.0); PLATELET COUNT 193 X10^3/uL (150.0-450.0); RED BLOOD COUNT 3.71 X10^6/uL (3.5-5.4); RED CELL DISTRIBUTION WIDTH 16.2 % (11.6-16.5); WHITE BLOOD COUNT 9.2 X10^3/uL (3.6-10.0)
[2021-09-25 05:45] LABS: ALANINE AMINOTRANSFERASE 11 Units/L (12-78); ALBUMIN 2.4 g/dL (3.4-5.0); ALKALINE PHOSPHATASE 72 Units/L (46-116); ASPARTATE AMINO TRANSFERASE 11 Units/L (15-37); BLOOD UREA NITROGEN 16 mg/dL (7-18); CALCIUM 8.6 mg/dL (8.5-10.1); CARBON DIOXIDE 24.8 mmol/L (21-32); CHLORIDE 99 mmol/L (98-107); COR CA(FOR HYPOALB) 9.9 mg/dL (8.5-10.1); COR NA(FOR HYPERGLY) 135 mmol/L (136-145); SODIUM 134 mmol/L (136-145); eGFR NON BLACK RACES > 60 (>60)
[2021-09-25] MEDS ORDERED: BENADRYL INJ 50 MG VIAL ONE (08:01)
[2021-09-25] MEDS ORDERED: BENADRYL INJ 50 MG VIAL IVP PRN (08:21)
[2021-09-25] MEDS: LR 1,000 ML IV 1,000 ML IV SCH ×2 (09:04→22:00)
[2021-09-25 10:01] VITALS: BMI 23.6
--- NOTE | 2021-09-25 10:36 | US ---
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 It is partially thrombosed. It is located very near the right SFA origin. Neck of the aneurysm is not well identified. There appears to be normal arterial flow of an below the levels of the pseudoaneurysm.IMPRESSION7.6 cm pseudoaneurysm is seen in the distal right [employer] near the SFA origin. It is partially thrombosed.Electronically signed by: Jorge Maria (Sep 25, 2021 10:34:01)
--- NOTE | 2021-09-25 11:07 | DR.H&P ---
H&P History & Physical for Day of: H&P Date: 09/24/21 Chief Complaint Chief Complaint: Acute swelling right groin. Allergies Allergies Allergy/AdvReac Type Severity Reaction Status Date / Time diazepam [From Valium] Allergy Intermediate ants Verified 05/02/21 11:20 crawling on skin Sulfa (Sulfonamide Allergy Mild fever Verified 05/02/21 11:20 Antibiotics) [SULFA] History of Present Illness History of Present Illness: 70 year old female with significant vascular history. History of aortic stent graft repair in August of 2020 .Patient seen by me for rest pain of both lower extremities . She had bilateral lower extremity antegrade bilateral revascularization. The left leg worked well with left tib-peroneal trunk athrectomy and drug coated balloon angioplasty The right leg had problems in the groin and ultimately required right femoral endarterectomy and patch angioplasty nearly two months ago . She had post -op seroma which resolved. Had acute onset swelling right groin 3 days ago. Past Medical History Past Medical History: CVA (History CVA with no residual), Diabetes and Hypertension Additional Medical History: AAA repair by stent graft Past Surgical History Surgical History: AAA Repair and Appendectomy Additional Surgical History: aortic stent graft repair, b/l LE peripheral intervention. Family History Family Medical History: Diabetes Mellitus, DE, Heart Failure and Hypertension Social History Does patient currently use any type of tobacco product: Yes Have you used tobacco products in the last 12 months: Yes Type of Tobacco Use: Cigarettes How many years tobacco product used: 54 Packs per day or dips/chews per day: 1to 2 Does any household member use tobacco: No Alcohol Use: None Drug Use: None Prescription drug monitoring program results: PDMP reviewed and no concerns identified Medications Home Medications: diazepam [From Valium] Allergy (Intermediate, Verified 05/02/21 11:20) ants crawling on skin Sulfa (Sulfonamide Antibiotics) [SULFA] Allergy (Mild, Verified 05/02/21 11:20) fever Plavix, Otezla ,Valsartan,Clonidine , Atorvastatin Labs Result Diagrams: 09/25/21 04:50 09/25/21 04:50 Labs: Laboratory WBC 9.2 X10^3/uL (3.6-10.0) 09/25/21 04:50 RBC 3.71 X10^6/uL (3.5-5.4) 09/25/21 04:50 Hgb 10.4 g/dL (12.0-16.0) L 09/25/21 04:50 Hct 30.9 % (36.0-47.0) L 09/25/21 04:50 MCV 83.1 fL (80.0-100.0) 09/25/21 04:50 MCH 27.9 pg (27.0-34.0) 09/25/21 04:50 MCHC 33.5 g/dL (33.0-35.0) 09/25/21 04:50 RDW 16.2 % (11.6-16.5) 09/25/21 04:50 Plt Count 193 X10^3/uL (150.0-450.0) 09/25/21 04:50 MPV 8.4 fL (7.4-11.0) 09/25/21 04:50 Neut % (Auto) 81.9 % (42.0-75.0) H 09/25/21 04:50 Lymph % (Auto) 12.0 % (21.0-51.0) L 09/25/21 04:50 [place] % (Auto) 5.4 % (0.0-13.0) 09/25/21 04:50 Eos % (Auto) 0.2 % (0.9-2.9) L 09/25/21 04:50 Baso % (Auto) 0.5 % (0.2-1.0) 09/25/21 04:50 Neut # (Auto) 7.5 x10^3/uL (2.2-4.8) H 09/25/21 04:50 Lymph # (Auto) 1.1 X10^3/uL (1.3-2.9) L 09/25/21 04:50 [place] # (Auto) 0.5 x10^3/uL (0.3-0.8) 09/25/21 04:50 Eos # (Auto) 0.0 x10^3/uL (0.0-0.2) 09/25/21 04:50 Baso # (Auto) 0.0 X10^3/uL (0.0-0.1) 09/25/21 04:50 Absolute Nucleated RBC 0.0 /100WBC 09/25/21 04:50 PT 15.1 SECONDS (11.8-14.3) 09/24/21 19:58 INR Target Range - 09/24/21 19:58 INR 1.25 (0.8-1.3) 09/24/21 19:58 APTT 31.5 SECONDS (22.9-36.5) 09/24/21 19:58 PTT Comment - 09/24/21 19:58 Sodium 134 mmol/L (136-145) L 09/25/21 04:50 Corrected Sodium 135 mmol/L (136-145) L 09/25/21 04:50 Potassium 3.7 mmol/L (3.5-5.1) 09/25/21 04:50 Chloride 99 mmol/L (98-107) 09/25/21 04:50 Carbon Dioxide 24.8 mmol/L (21-32) 09/25/21 04:50 BUN 16 mg/dL (7-18) 09/25/21 04:50 Creatinine 0.70 mg/dL (0.55-1.02) 09/25/21 04:50 Est GFR (MDRD) Af Amer > 60 (>60) 09/25/21 04:50 Est GFR (MDRD) Non-Af > 60 (>60) 09/25/21 04:50 Glucose 132 mg/dL (65-99) H 09/25/21 04:50 Calcium 8.6 mg/dL (8.5-10.1) 09/25/21 04:50 Corrected Calcium 9.9 mg/dL (8.5-10.1) 09/25/21 04:50 Total Bilirubin 0.30 mg/dL (0.2-1.0) 09/25/21 04:50 AST 11 Units/L (15-37) L 09/25/21 04:50 ALT 11 Units/L (12-78) L 09/25/21 04:50 Alkaline Phosphatase 72 Units/L (46-116) 09/25/21 04:50 Total Protein 7.0 g/dL (6.4-8.2) 09/25/21 04:50 Albumin 2.4 g/dL (3.4-5.0) L 09/25/21 04:50 Globulin 4.6 g/dL (2.5-4.5) H 09/25/21 04:50 Albumin/Globulin Ratio 0.5 Ratio (1.1-2.1) L 09/25/21 04:50 SARS-CoV-2 (PCR) Negative (NEGATIVE) 09/24/21 16:50 Influenza Type A (PCR) Negative (NEGATIVE) 09/24/21 16:50 Influenza Type B (PCR) Negative (NEGATIVE) 09/24/21 16:50 RSV (PCR) Negative (NEGATIVE) 09/24/21 16:50 Review of Systems Constitutional: No Symptoms Reported Eyes: No Symptoms Reported ENT: No Symptoms Reported Respiratory: denies No Symptoms Reported, See HPI, Cough, Dry, Shortness of Breath, Hemoptysis, SOB with Excertion, Pleuritic Pain, Sputum, Wheezing and Other Cardiovascular: denies No Symptoms Reported, Chest Pain, See HPI, Palpitations, Orthopnea, Paroxysmal Noc. Dyspnea, Edema, Light Headedness and Other Gastrointestinal: denies No Symptoms Reported, See HPI, Nausea, Vomiting, Abdominal Pain, Diarrhea, Constipation, Melena, Hematochezia and Other Genitourinary: denies No Symptoms Reported, See HPI, Dysuria, Frequency, Incontinence, Hematuria, Retention and Other Musculoskeletal: denies No Symptoms Reported, See HPI, Shoulder Pain, Arm Pain, Back Pain, Hand Pain, Leg Pain, Foot Pain, Neck Pain and Other Skin: Other (pulsatile mass right groin which came up acutely, small amount of blood to the inferior aspect of the right groin) Neurological: denies No Symptoms Reported, See HPI, Weakness, Numbness, Incoordination, Change in Speech, Confusion, Seizures and Other Physical Exam Vital Signs: Temperature 99.2 F Pulse Rate 93 Respiratory Rate 35 Blood Pressure [Right Arm] 125/63 Blood Pressure 95/50 O2 Sat by Pulse Oximetry 97 Oriented: Normal, Time, Person and Place Eyes: Normal Ear: Normal Nose: Normal Throat: Normal Respiratory: Clear Throughout Cardiovascular: Normal and Other (pulsatile mass right groin 7 cm in diameter. ) : Normal Auscultation: Bowel Sounds: Normal Palpation: Normal Tenderness: Normal Musculoskeletal: Normal Psychiatric: Normal Mood Description: Anxious Speech Pattern: Clear Assessment/Plan (1) Femoral artery aneurysm, right: Status: Acute Plan: U/S of the right groin. IF pseudoaneurysm may be able to treat with Thrombin injection. If true aneurysm may need surgical correction vs peripheral repair. (2) Critical limb ischemia with history of revascularization of same extremity: Status: Acute Plan: stable (3) Peripheral vascular disease: Status: Acute (4) Hypertension: Status: Acute Plan: Continue home medications (5) Diabetes 1.5, managed as type 1: Status: Acute Plan: siding scale insulin
[2021-09-25] MEDS ORDERED: NovoLIN R (or HumuLIN R) SC PRN (11:37)
[2021-09-25] MEDS: DILAUDID INJ IVP PRN (17:58)
[2021-09-25] MEDS ORDERED: KLOR-CON PO PRN (20:37)
[2021-09-25] MEDS ORDERED: MAGNESIUM SULFATE 1 GRAM/100 mL PREMIX 1 G/100 ML BAG IV PRN (20:37)
[2021-09-25] MEDS ORDERED: POTASSIUM CHL 60 MEQ/NS 0.45% 500 ML IV PRN (20:37)
[2021-09-25] MEDS ORDERED: MICRO K EXTEN CAP 10 MEQ PO PRN (20:37)
[2021-09-25] MEDS ORDERED: POTASSIUM CHL 40 MEQ/NS 0.45% 500 ML IV PRN (20:37)
[2021-09-25] MEDS ORDERED: K-DUR TAB 20 MEQ PO PRN (20:37)
[2021-09-25] MEDS ORDERED: POTASSIUM CHLORIDE LIQ 20 MEQ UDC PO PRN (20:37)
[2021-09-25] MEDS ORDERED: K-RIDER 10 MEQ/NS 100 ML 10 MEQ/100 ML BAG IV PRN (20:37)
--- NOTE | 2021-09-25 21:37 | NOTE.SOAP ---
Soap Note Note for Day of Date of Exam: 09/25/21 Subjective Data Subjective Data: No change. Still with pulsatile mass in the right groin Objective Data Temperature: 99.6 F Pulse Rate: 100 Respiratory Rate: 25 Blood Pressure: 125/62 O2 Sat by Pulse Oximetry: 94 Objective Data: Pulsatile mass in the right groin is still present and unchanged in size. Hgb= 10.4,wkt=318 k, Cr=0.70, WBC=9.2, INR= 1.25, PTT= 31.5 U/S of the right groin shows a pseudoaneurysm of the right groin Assessment Assessment: Right groin pseudoaneurysm . Plan Plan: Will plan Thrombin injection to resolve the pseudoaneurysm. Tentatively on 09/27/2021
[2021-09-26] MEDS: DILAUDID INJ IVP PRN ×6 (00:55→23:58)
[2021-09-26 05:09] LABS: BASOPHILS % (AUTO) 0.4 % (0.2-1.0); EOSINOPHILS % (AUTO) 0.3 % (0.9-2.9); HEMATOCRIT 32.1 % (36.0-47.0); HEMOGLOBIN 10.5 g/dL (12.0-16.0); LYMPHOCYTES # (AUTO) 1.2 X10^3/uL (1.3-2.9); LYMPHOCYTES % (AUTO) 14.5 % (21.0-51.0); MEAN CORPUSCULAR HEMOGLOBIN 27.7 pg (27.0-34.0); MEAN CORPUSCULAR HGB CONC 32.8 g/dL (33.0-35.0); MEAN CORPUSCULAR VOLUME 84.5 fL (80.0-100.0); MEAN PLATELET VOLUME 8.1 fL (7.4-11.0); MONOCYTES # (AUTO) 0.5 x10^3/uL (0.3-0.8); MONOCYTES % (AUTO) 5.5 % (0.0-13.0); NEUTROPHILS # (AUTO) 6.6 x10^3/uL (2.2-4.8); NEUTROPHILS % (AUTO) 79.3 % (42.0-75.0); PLATELET COUNT 185 X10^3/uL (150.0-450.0); WHITE BLOOD COUNT 8.3 X10^3/uL (3.6-10.0)
[2021-09-26 05:21] LABS: ALANINE AMINOTRANSFERASE 13 Units/L (12-78); ALBUMIN 2.3 g/dL (3.4-5.0); ALKALINE PHOSPHATASE 79 Units/L (46-116); ASPARTATE AMINO TRANSFERASE 16 Units/L (15-37); BLOOD UREA NITROGEN 14 mg/dL (7-18); CALCIUM 8.4 mg/dL (8.5-10.1); CARBON DIOXIDE 27.9 mmol/L (21-32); CHLORIDE 100 mmol/L (98-107); COR CA(FOR HYPOALB) 9.8 mg/dL (8.5-10.1); CREATININE 0.72 mg/dL (0.55-1.02); MAGNESIUM 1.9 mg/dL (1.7-2.9); SODIUM 136 mmol/L (136-145); TOTAL PROTEIN 6.8 g/dL (6.4-8.2); eGFR NON BLACK RACES > 60 (>60)
[2021-09-26] MEDS: DIOVAN TAB 160 MG PO SCH (08:46)
[2021-09-26] MEDS: LIPITOR TAB 40 MG PO SCH (08:47)
[2021-09-26] MEDS: LR 1,000 ML IV 1,000 ML IV SCH ×2 (10:59→23:57)
--- NOTE | 2021-09-26 22:33 | NOTE.SOAP ---
Soap Note Note for Day of Date of Exam: 09/26/21 Subjective Data Subjective Data: Little change in size of aneurysm right groin Objective Data Temperature: 99.7 F Pulse Rate: 96 Respiratory Rate: 19 Blood Pressure: 98/56 O2 Sat by Pulse Oximetry: 97 Assessment Assessment: right groin pseudoaneurysm Plan Plan: Thrombin injection thrombosis right groin pseudoaneurysm planned under U/S guidance tomorrow.
[2021-09-27] MEDS: DILAUDID INJ IVP PRN ×4 (04:50→20:00)
[2021-09-27 05:17] LABS: BASOPHILS % (AUTO) 0.3 % (0.2-1.0); EOSINOPHILS # (AUTO) 0.1 x10^3/uL (0.0-0.2); HEMATOCRIT 29.4 % (36.0-47.0); HEMOGLOBIN 9.8 g/dL (12.0-16.0); LYMPHOCYTES # (AUTO) 0.9 X10^3/uL (1.3-2.9); LYMPHOCYTES % (AUTO) 11.8 % (21.0-51.0); MEAN CORPUSCULAR HEMOGLOBIN 28.1 pg (27.0-34.0); MEAN CORPUSCULAR HGB CONC 33.5 g/dL (33.0-35.0); MEAN CORPUSCULAR VOLUME 83.9 fL (80.0-100.0); MEAN PLATELET VOLUME 8.3 fL (7.4-11.0); MONOCYTES # (AUTO) 0.5 x10^3/uL (0.3-0.8); NEUTROPHILS # (AUTO) 6.5 x10^3/uL (2.2-4.8); NEUTROPHILS % (AUTO) 80.9 % (42.0-75.0); PLATELET COUNT 188 X10^3/uL (150.0-450.0); RED BLOOD COUNT 3.51 X10^6/uL (3.5-5.4); RED CELL DISTRIBUTION WIDTH 15.8 % (11.6-16.5)
[2021-09-27 05:29] LABS: ALANINE AMINOTRANSFERASE 22 Units/L (12-78); ALBUMIN 2.1 g/dL (3.4-5.0); ALKALINE PHOSPHATASE 84 Units/L (46-116); ASPARTATE AMINO TRANSFERASE 27 Units/L (15-37); BLOOD UREA NITROGEN 12 mg/dL (7-18); CALCIUM 8.3 mg/dL (8.5-10.1); CHLORIDE 99 mmol/L (98-107); COR CA(FOR HYPOALB) 9.8 mg/dL (8.5-10.1); COR NA(FOR HYPERGLY) 133 mmol/L (136-145); CREATININE 0.67 mg/dL (0.55-1.02); SODIUM 133 mmol/L (136-145); TOTAL PROTEIN 6.5 g/dL (6.4-8.2); eGFR NON BLACK RACES > 60 (>60)
[2021-09-27] MEDS ORDERED: LR 1,000 ML IV 1,000 ML IV ONE (08:14)
[2021-09-27] MEDS ORDERED: ANCEF 1 GRAM IV PREMIX* 2 G/100 ML BAG IV ONE (08:14)
[2021-09-27] MEDS ORDERED: DILAUDID INJ ONE (08:24)
[2021-09-27] MEDS ORDERED: DIPRIVAN VIAL ONE (08:48)
[2021-09-27] MEDS ORDERED: VERSED ONE (08:48)
[2021-09-27] MEDS ORDERED: BETADINE SOLN ONE ×2 (08:54→09:02)
[2021-09-27] MEDS ORDERED: MARCAINE 0.5% ONE (09:11)
[2021-09-27] MEDS ORDERED: RECOTHROM TOP ONE (09:14)
--- NOTE | 2021-09-27 10:02 | OR.IMMED ---
IMMEDIATE POST-OP NOTE Immediate Post-Op Note Pre-Op Diagnosis: right femoral pseudoaneurysm Post-Op Diagnosis: same Procedure: U/S guided thrombin injection of right pseudoaneurysm Description of Procedure: see operative summary Surgeon/Mail Distribution Clerk: Janie Findings: as above Specimens Removed: none Estimated Blood Loss: none Complications: none Progress Notes: U/S after thrombin injection showed no flow in the aneurysm. Flow still in common femoral artery in the groin. Will observe and repeat u/s this PM. Compressive dressing applied right groin. Final Diagnosis: as above .
[2021-09-27] MEDS: LIPITOR TAB 40 MG PO SCH (10:38)
[2021-09-27] MEDS: DIOVAN TAB 160 MG PO SCH (10:38)
[2021-09-27] MEDS: LR 1,000 ML IV 1,000 ML IV SCH (15:51)
[2021-09-27] MEDS ORDERED: TYLENOL 325 MG TAB PO PRN (16:32)
[2021-09-27] MEDS ORDERED: TYLENOL 325 MG TAB PO ONE (16:40)
[2021-09-27] MEDS: ZOSYN VIAL 3.375 GRAMS 3.375 G in NS 100 ML IV + SPIKE MINIBAG* 100 ML IV SCH ×2 (17:26→21:26)
--- NOTE | 2021-09-27 17:32 | DR.OPNOTE ---
OP NOTE Pre-Op Diagnosis: Right groin / femoral artery pseudoaneurysm Post-Op Diagnosis: same Procedure Date Date Of Procedure: 09/27/21 Procedure: PROCEDURE :ultrasound-guided thrombosis of right femoral artery pseudoaneurysm using thrombin injection NARRATIVE : The patient was taken to the operative suite and placed in the Supine position. She was given IV sedation which was supervised by myself. The entire right groin and the palpable pulsatile mass in the right groin measuring approximately 10 cm in diameter was prepped and draped in sterile fashion. Time out for the procedure obtained . 5000 units of thrombin was mixed in a total of 10 cc of saline. Ultra sonography using color flow used to identify flow in the pulsatile mass and I was able to isolate the opening of it from the proximal common femoral artery as noted in the official Radiology interpretation of the ultrasound of the right groin performed on admission. Using ultrasound guidance I placed a 22 gauge needle near the opening and instilled approximately 1500 units of thrombin. This appeared to stop most of the flow however the aneurysm was so large it had other areas of flow and these were instilled with Thrombin for a total of 3500 units. Compression was held on the area for 5 minutes then repeat ultrasound showed no obvious flow in the aneurysm but it was slow in the [place] vessel. Anesthesia Comment: MAC Findings: as above Specimen/Pathology: none Type of Fluids Used:: Lactated Ringers EBL: minimal Complications:: none Needle/Sponge Count:: correct Disposition/Condition: Pt. tolerated procedure without difficulty. Taken to ICU in stable condition.
--- NOTE | 2021-09-27 17:38 | RAD ---
HISTORYelevated temp Relevant Clinical InformationSTUDYCHEST, 1 [id number] silhouette is normal in size. There is re-demonstration of bilateral peripheral interstitial coarsening and reticulation, suggestive of chronic interstitial lung disease and sequela from prior atypical pneumonia. No definite acute alveolar infiltrate is identified. There is no significant pleural effusion or pneumothorax. Abdominal endo stent again noted and appear unchanged.IMPRESSIONStable peripheral interstitial lung changes, which are again suggestive of chronic interstitial lung disease and sequela of prior atypical pneumonia.No definite acute alveolar infiltrate or significant change since prior.Electronically signed by: CARMEN ROWE (Sep 27, 2021 17:37:09)
[2021-09-27] MEDS: NYSTATIN POWDER TOP SCH (21:26)
[2021-09-28] MEDS: LR 1,000 ML IV 1,000 ML IV SCH (02:48)
[2021-09-28 05:11] LABS: BASOPHILS # (AUTO) 0.1 X10^3/uL (0.0-0.1); BASOPHILS % (AUTO) 0.4 % (0.2-1.0); EOSINOPHILS # (AUTO) 0.1 x10^3/uL (0.0-0.2); EOSINOPHILS % (AUTO) 0.8 % (0.9-2.9); HEMATOCRIT 29.7 % (36.0-47.0); HEMOGLOBIN 9.7 g/dL (12.0-16.0); LYMPHOCYTES # (AUTO) 0.8 X10^3/uL (1.3-2.9); MEAN CORPUSCULAR HEMOGLOBIN 27.5 pg (27.0-34.0); MEAN CORPUSCULAR HGB CONC 32.8 g/dL (33.0-35.0); MEAN PLATELET VOLUME 8.1 fL (7.4-11.0); MONOCYTES # (AUTO) 0.6 x10^3/uL (0.3-0.8); MONOCYTES % (AUTO) 4.9 % (0.0-13.0); NEUTROPHILS # (AUTO) 10.4 x10^3/uL (2.2-4.8); NEUTROPHILS % (AUTO) 86.9 % (42.0-75.0); PLATELET COUNT 214 X10^3/uL (150.0-450.0); RED BLOOD COUNT 3.54 X10^6/uL (3.5-5.4); RED CELL DISTRIBUTION WIDTH 16.1 % (11.6-16.5); WHITE BLOOD COUNT 11.9 X10^3/uL (3.6-10.0)
[2021-09-28 05:14] LABS: BLOOD UREA NITROGEN 7 mg/dL (7-18); CALCIUM 8.2 mg/dL (8.5-10.1); CARBON DIOXIDE 28.8 mmol/L (21-32); CHLORIDE 100 mmol/L (98-107); CREATININE 0.79 mg/dL (0.55-1.02); SODIUM 134 mmol/L (136-145); eGFR NON BLACK RACES > 60 (>60)
[2021-09-28] MEDS: ZOSYN VIAL 3.375 GRAMS 3.375 G in NS 100 ML IV + SPIKE MINIBAG* 100 ML IV SCH (05:30)
[2021-09-28] MEDS: DILAUDID INJ IVP PRN ×2 (05:36→08:30)
[2021-09-28] MEDS: DIOVAN TAB 160 MG PO SCH (08:29)
[2021-09-28] MEDS: LIPITOR TAB 40 MG PO SCH (08:30)
[2021-09-28] MEDS: NYSTATIN POWDER TOP SCH (08:30)
[2021-09-28 11:49] VITALS: BP 87/52
--- NOTE | 2021-09-28 12:15 | W.DIS.FURT ---
Summary of Discharge Discharge Summary of Date Date of Exam: 09/28/21 Admission Date Date of Admission: 09/25/21 Admission Diagnosis Hospital Course: 70 year old female who has had bilateral lower extremity peripheral vascular interventions. Her post-operative care was complicated by a prolonged hospitalization due to COVID. She has been doing well and about to close a wound in the right upper thigh. She presented acutely to my office on September 25 with acute swelling the right groin from three days prior .The swelling was pulsatile. This is over a area ofendarterctomy of the femoral artery with patch angioplasty done two months prior. She was admitted immediately to the ICU for observation .Doppler studies showing a large [place] is in which appeared to originate from the apex of the patch. 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 ultrasound documented resolution of flow in the aneurysm but there was still flow in the [place] vessel.The right groin has been studied twice at the bedside with ultrasound since the surgery and there is no slow in the aneurysm. Flow remains in the soboba vessels. She will be discharged home on her usual medications except for Plavix. To be given Percocet 5 mg tablets one every six hours. Pain , #40 Vital Signs: Vital Signs (72 hours) 09/25/21 12:15 09/25/21 12:30 09/25/21 12:45 Temperature Pulse Rate 100 H 101 H 109 H Respiratory Rate 13 21 25 H Blood Pressure O2 Sat by Pulse Oximetry 96 93 L 09/25/21 13:00 09/25/21 13:01 09/25/21 13:15 Temperature Pulse Rate 107 H 104 H 120 H Respiratory Rate 27 H 23 33 H Blood Pressure 134/71 O2 Sat by Pulse Oximetry 09/25/21 13:30 09/25/21 13:45 09/25/21 14:00 Temperature Pulse Rate 103 H 104 H 104 H Respiratory Rate 17 18 16 Blood Pressure 111/60 O2 Sat by Pulse Oximetry 92 L 94 L 94 L 09/25/21 14:15 09/25/21 14:30 09/25/21 14:45 Temperature Pulse Rate 105 H 118 H 97 H Respiratory Rate 14 21 17 Blood Pressure O2 Sat by Pulse Oximetry 93 L 95 93 L 09/25/21 15:00 09/25/21 15:15 09/25/21 15:30 Temperature 98.6 F Pulse Rate 100 H 101 H 107 H Respiratory Rate 19 16 10 L Blood Pressure 137/69 O2 Sat by Pulse Oximetry 95 94 L 95 09/25/21 15:45 09/25/21 16:00 09/25/21 16:15 Temperature 99.8 F H Pulse Rate 101 H 99 H 104 H Respiratory Rate 18 18 16 Blood Pressure 127/66 O2 Sat by Pulse Oximetry 98 94 L 99 09/25/21 16:30 09/25/21 16:45 09/25/21 17:00 Temperature Pulse Rate 106 H 105 H 109 H Respiratory Rate 14 16 26 H Blood Pressure O2 Sat by Pulse Oximetry 96 09/25/21 17:01 09/25/21 17:15 09/25/21 17:30 Temperature 99.6 F Pulse Rate 114 H 102 H 103 H Respiratory Rate 20 24 18 Blood Pressure 117/55 O2 Sat by Pulse Oximetry 94 L 09/25/21 17:45 09/25/21 17:58 09/25/21 18:00 Temperature Pulse Rate 102 H 107 H Respiratory Rate 19 22 17 Blood Pressure 127/60 O2 Sat by Pulse Oximetry 95 84 L 09/25/21 18:15 09/25/21 18:28 09/25/21 18:30 Temperature Pulse Rate 108 H 104 H Respiratory Rate 19 20 17 Blood Pressure O2 Sat by Pulse Oximetry 96 95 09/25/21 18:45 09/25/21 18:58 09/25/21 19:00 Temperature Pulse Rate 104 H 102 H Respiratory Rate 24 22 15 Blood Pressure 122/60 O2 Sat by Pulse Oximetry 95 94 L 09/25/21 19:15 09/25/21 19:30 09/25/21 19:45 Temperature Pulse Rate 102 H 97 H 100 H Respiratory Rate 15 19 25 H Blood Pressure O2 Sat by Pulse Oximetry 93 L 93 L 94 L 09/25/21 20:00 09/25/21 20:15 09/25/21 20:30 Temperature 100.4 F H Pulse Rate 100 H 98 H 100 H Respiratory Rate 13 42 H 17 Blood Pressure 126/62 O2 Sat by Pulse Oximetry 94 L 96 96 09/25/21 20:45 09/25/21 21:00 09/25/21 21:15 Temperature Pulse Rate 103 H 101 H 100 H Respiratory Rate 17 17 30 H Blood Pressure 102/53 O2 Sat by Pulse Oximetry 92 L 94 L 96 09/25/21 21:30 09/25/21 21:37 09/25/21 21:45 Temperature 99.6 F Pulse Rate 96 H 100 H 129 H Respiratory Rate 20 25 H 34 H Blood Pressure 125/62 O2 Sat by Pulse Oximetry 91 L 94 L 90 L 09/25/21 22:00 09/25/21 22:15 09/25/21 22:30 Temperature Pulse Rate 111 H 105 H 105 H Respiratory Rate 25 H 33 H 19 Blood Pressure 143/74 O2 Sat by Pulse Oximetry 93 L 96 89 L 09/25/21 22:45 09/25/21 23:00 09/25/21 23:01 Temperature Pulse Rate 107 H 109 H 115 H Respiratory Rate 16 33 H 30 H Blood Pressure 113/58 O2 Sat by Pulse Oximetry 91 L 93 L 95 09/25/21 23:15 09/25/21 23:30 09/25/21 23:45 Temperature Pulse Rate 109 H 107 H 111 H Respiratory Rate 25 H 21 22 Blood Pressure O2 Sat by Pulse Oximetry 92 L 91 L 90 L 09/26/21 00:00 09/26/21 00:01 09/26/21 00:15 Temperature 99.3 F Pulse Rate 111 H 117 H 113 H Respiratory Rate 42 H 26 H 21 Blood Pressure 167/83 O2 Sat by Pulse Oximetry 93 L 95 90 L 09/26/21 00:30 09/26/21 00:45 09/26/21 00:49 Temperature Pulse Rate 116 H 101 H 102 H Respiratory Rate 17 15 19 Blood Pressure 110/61 O2 Sat by Pulse Oximetry 90 L 98 98 09/26/21 00:55 09/26/21 01:00 09/26/21 01:15 Temperature Pulse Rate 105 H 108 H Respiratory Rate 22 17 15 Blood Pressure 113/61 O2 Sat by Pulse Oximetry 98 98 09/26/21 01:25 09/26/21 01:30 09/26/21 01:45 Temperature Pulse Rate 104 H 102 H Respiratory Rate 19 13 9 L Blood Pressure O2 Sat by Pulse Oximetry 97 98 09/26/21 01:59 09/26/21 02:00 09/26/21 02:15 Temperature Pulse Rate 100 H 101 H 102 H Respiratory Rate 9 L 32 H 15 Blood Pressure 122/72 O2 Sat by Pulse Oximetry 98 96 98 09/26/21 02:30 09/26/21 02:45 09/26/21 03:00 Temperature Pulse Rate 101 H 100 H 100 H Respiratory Rate 24 17 15 Blood Pressure 115/62 O2 Sat by Pulse Oximetry 97 97 95 09/26/21 03:15 09/26/21 03:30 09/26/21 03:45 Temperature Pulse Rate 101 H 101 H 97 H Respiratory Rate 23 15 17 Blood Pressure O2 Sat by Pulse Oximetry 92 L 96 98 09/26/21 04:00 09/26/21 04:15 09/26/21 04:30 Temperature Pulse Rate 94 H 96 H 94 H Respiratory Rate 17 21 16 Blood Pressure 118/70 O2 Sat by Pulse Oximetry 98 98 98 09/26/21 04:45 09/26/21 05:00 09/26/21 05:15 Temperature Pulse Rate 95 H 94 H 95 H Respiratory Rate 20 14 23 Blood Pressure 113/61 O2 Sat by Pulse Oximetry 99 100 100 09/26/21 05:30 09/26/21 05:45 09/26/21 06:00 Temperature Pulse Rate 93 H 94 H 97 H Respiratory Rate 32 H 30 H 13 Blood Pressure 110/56 O2 Sat by Pulse Oximetry 99 99 98 09/26/21 06:15 09/26/21 06:30 09/26/21 06:45 Temperature Pulse Rate 97 H 95 H 98 H Respiratory Rate 14 13 54 H Blood Pressure O2 Sat by Pulse Oximetry 98 98 99 09/26/21 07:00 09/26/21 07:15 09/26/21 07:30 Temperature Pulse Rate 93 H 126 H 97 H Respiratory Rate 16 42 H 15 Blood Pressure 110/52 O2 Sat by Pulse Oximetry 97 93 L 98 09/26/21 07:45 09/26/21 08:00 09/26/21 08:15 Temperature 98.8 F Pulse Rate 96 H 110 H 107 H Respiratory Rate 41 H 29 H 28 H Blood Pressure 105/71 O2 Sat by Pulse Oximetry 98 97 98 09/26/21 08:30 09/26/21 08:45 09/26/21 08:47 Temperature Pulse Rate 98 H 110 H Respiratory Rate 20 29 H 24 Blood Pressure O2 Sat by Pulse Oximetry 97 97 09/26/21 09:00 09/26/21 09:15 09/26/21 09:17 Temperature 98.8 F Pulse Rate 122 H 104 H Respiratory Rate 50 H 21 16 Blood Pressure 111/73 O2 Sat by Pulse Oximetry 96 88 L 09/26/21 09:30 09/26/21 09:45 09/26/21 10:00 Temperature Pulse Rate 104 H 97 H 102 H Respiratory Rate 15 30 H 14 Blood Pressure O2 Sat by Pulse Oximetry 87 L 94 L 91 L 09/26/21 10:01 09/26/21 10:15 09/26/21 10:30 Temperature Pulse Rate 101 H 97 H 91 H Respiratory Rate 20 21 29 H Blood Pressure 92/51 O2 Sat by Pulse Oximetry 91 L 96 96 09/26/21 10:45 09/26/21 10:51 09/26/21 11:00 Temperature Pulse Rate 99 H 98 H Respiratory Rate 31 H 18 19 Blood Pressure 87/56 O2 Sat by Pulse Oximetry 99 91 L 09/26/21 11:15 09/26/21 11:21 09/26/21 11:30 Temperature Pulse Rate 100 H 109 H Respiratory Rate 16 16 16 Blood Pressure O2 Sat by Pulse Oximetry 92 L 94 L 09/26/21 11:45 09/26/21 12:00 09/26/21 12:15 Temperature Pulse Rate 106 H 102 H 102 H Respiratory Rate 22 16 18 Blood Pressure 111/56 O2 Sat by Pulse Oximetry 94 L 91 L 91 L 09/26/21 12:30 09/26/21 12:45 09/26/21 13:00 Temperature Pulse Rate 101 H 100 H 100 H Respiratory Rate 18 23 23 Blood Pressure O2 Sat by Pulse Oximetry 93 L 87 L 84 L 09/26/21 13:01 09/26/21 13:15 09/26/21 13:30 Temperature Pulse Rate 101 H 103 H 101 H Respiratory Rate 19 21 21 Blood Pressure 101/56 O2 Sat by Pulse Oximetry 92 L 88 L 87 L 09/26/21 13:45 09/26/21 14:00 09/26/21 14:15 Temperature 98.4 F Pulse Rate 104 H 100 H 116 H Respiratory Rate 18 19 27 H Blood Pressure 106/57 O2 Sat by Pulse Oximetry 91 L 95 09/26/21 14:30 09/26/21 14:45 09/26/21 15:00 Temperature Pulse Rate 111 H 110 H 109 H Respiratory Rate 21 17 24 Blood Pressure 102/58 O2 Sat by Pulse Oximetry 09/26/21 15:15 09/26/21 15:30 09/26/21 15:45 Temperature Pulse Rate 101 H 102 H 104 H Respiratory Rate 20 35 H 20 Blood Pressure O2 Sat by Pulse Oximetry 09/26/21 16:00 09/26/21 16:15 09/26/21 16:30 Temperature Pulse Rate 104 H 98 H 97 H Respiratory Rate 25 H 20 20 Blood Pressure 97/52 O2 Sat by Pulse Oximetry 93 L 92 L 09/26/21 16:45 09/26/21 17:00 09/26/21 17:01 Temperature Pulse Rate 97 H 97 H Respiratory Rate 25 H 24 Blood Pressure 102/56 O2 Sat by Pulse Oximetry 84 L 94 L 09/26/21 17:02 09/26/21 17:18 09/26/21 17:19 Temperature Pulse Rate 120 H 118 H Respiratory Rate 16 29 H 25 H Blood Pressure 102/71 O2 Sat by Pulse Oximetry 82 L 09/26/21 17:30 09/26/21 17:32 09/26/21 17:45 Temperature 99.0 F Pulse Rate 96 H 97 H Respiratory Rate 19 20 24 Blood Pressure O2 Sat by Pulse Oximetry 97 98 09/26/21 18:00 09/26/21 18:15 09/26/21 18:30 Temperature 99.7 F H Pulse Rate 95 H 94 H 95 H Respiratory Rate 24 25 H 16 Blood Pressure 96/54 O2 Sat by Pulse Oximetry 94 L 97 94 L 09/26/21 18:45 09/26/21 19:00 09/26/21 19:01 Temperature Pulse Rate 94 H 95 H 98 H Respiratory Rate 13 24 41 H Blood Pressure 106/57 O2 Sat by Pulse Oximetry 94 L 95 97 09/26/21 19:15 09/26/21 19:30 09/26/21 19:45 Temperature Pulse Rate 101 H 101 H 98 H Respiratory Rate 19 20 22 Blood Pressure O2 Sat by Pulse Oximetry 93 L 97 92 L 09/26/21 20:00 09/26/21 20:15 09/26/21 20:21 Temperature 100.1 F H Pulse Rate 101 H 99 H 100 H Respiratory Rate 19 18 20 Blood Pressure 86/47 99/54 O2 Sat by Pulse Oximetry 97 96 95 09/26/21 20:24 09/26/21 20:30 09/26/21 20:45 Temperature Pulse Rate 102 H 104 H Respiratory Rate 22 43 H 18 Blood Pressure O2 Sat by Pulse Oximetry 97 97 09/26/21 20:54 09/26/21 21:00 09/26/21 21:15 Temperature Pulse Rate 99 H 96 H Respiratory Rate 16 17 15 Blood Pressure 83/48 O2 Sat by Pulse Oximetry 95 97 09/26/21 21:30 09/26/21 21:45 09/26/21 22:00 Temperature Pulse Rate 96 H 97 H 89 Respiratory Rate 19 30 H 32 H Blood Pressure 83/51 O2 Sat by Pulse Oximetry 97 91 L 97 09/26/21 22:15 09/26/21 22:30 09/26/21 22:33 Temperature 99.7 F H Pulse Rate 87 85 96 H Respiratory Rate 23 21 19 Blood Pressure 98/56 O2 Sat by Pulse Oximetry 97 99 97 09/26/21 22:45 09/26/21 23:00 09/26/21 23:15 Temperature Pulse Rate 86 88 97 H Respiratory Rate 16 34 H 46 H Blood Pressure 88/53 O2 Sat by Pulse Oximetry 97 97 09/26/21 23:30 09/26/21 23:45 09/26/21 23:58 Temperature Pulse Rate 98 H 85 Respiratory Rate 26 H 20 20 Blood Pressure O2 Sat by Pulse Oximetry 97 09/27/21 00:00 09/27/21 00:15 09/27/21 00:28 Temperature 99.5 F Pulse Rate 89 86 Respiratory Rate 13 11 L 20 Blood Pressure 115/58 O2 Sat by Pulse Oximetry 98 98 09/27/21 00:30 09/27/21 00:45 09/27/21 01:00 Temperature Pulse Rate 85 87 86 Respiratory Rate 11 L 20 23 Blood Pressure 97/58 O2 Sat by Pulse Oximetry 98 99 99 09/27/21 01:15 09/27/21 01:30 09/27/21 01:45 Temperature Pulse Rate 86 85 91 H Respiratory Rate 13 12 22 Blood Pressure O2 Sat by Pulse Oximetry 98 97 98 09/27/21 02:00 09/27/21 02:15 09/27/21 02:30 Temperature Pulse Rate 89 87 89 Respiratory Rate 19 12 16 Blood Pressure 112/63 O2 Sat by Pulse Oximetry 98 97 100 09/27/21 02:45 09/27/21 03:00 09/27/21 03:15 Temperature Pulse Rate 90 91 H 86 Respiratory Rate 12 16 23 Blood Pressure 133/67 O2 Sat by Pulse Oximetry 100 100 98 09/27/21 03:30 09/27/21 03:45 09/27/21 04:00 Temperature Pulse Rate 96 H 91 H 95 H Respiratory Rate 56 H 12 28 H Blood Pressure O2 Sat by Pulse Oximetry 98 98 100 09/27/21 04:02 09/27/21 04:15 09/27/21 04:30 Temperature Pulse Rate 97 H 92 H 96 H Respiratory Rate 15 25 H 30 H Blood Pressure 139/58 O2 Sat by Pulse Oximetry 100 99 98 09/27/21 04:45 09/27/21 04:50 09/27/21 05:00 Temperature Pulse Rate 92 H 90 Respiratory Rate 27 H 22 13 Blood Pressure 98/54 O2 Sat by Pulse Oximetry 100 98 09/27/21 05:15 09/27/21 05:20 09/27/21 05:30 Temperature Pulse Rate 90 90 Respiratory Rate 12 18 16 Blood Pressure O2 Sat by Pulse Oximetry 97 100 09/27/21 05:45 09/27/21 06:00 09/27/21 06:15 Temperature Pulse Rate 96 H 101 H 93 H Respiratory Rate 20 22 15 Blood Pressure 118/56 O2 Sat by Pulse Oximetry 96 100 96 09/27/21 06:30 09/27/21 06:45 09/27/21 07:00 Temperature 99.0 F Pulse Rate 86 86 86 Respiratory Rate 26 H 14 39 H Blood Pressure O2 Sat by Pulse Oximetry 98 98 96 09/27/21 07:15 09/27/21 07:36 09/27/21 07:40 Temperature Pulse Rate 87 108 H 92 H Respiratory Rate 21 22 22 Blood Pressure 121/59 O2 Sat by Pulse Oximetry 100 94 L 09/27/21 07:45 09/27/21 08:24 09/27/21 08:54 Temperature Pulse Rate 91 H Respiratory Rate 28 H 18 16 Blood Pressure O2 Sat by Pulse Oximetry 95 09/27/21 09:45 09/27/21 10:00 09/27/21 10:15 Temperature 99.0 F Pulse Rate 92 H 93 H 94 H Respiratory Rate 17 27 H Blood Pressure O2 Sat by Pulse Oximetry 97 100 100 09/27/21 10:30 09/27/21 10:45 09/27/21 11:00 Temperature Pulse Rate 92 H 90 90 Respiratory Rate 17 13 17 Blood Pressure O2 Sat by Pulse Oximetry 99 98 98 09/27/21 11:15 09/27/21 11:30 09/27/21 11:45 Temperature Pulse Rate 87 87 89 Respiratory Rate 17 12 14 Blood Pressure O2 Sat by Pulse Oximetry 100 99 100 09/27/21 11:55 09/27/21 12:00 09/27/21 12:15 Temperature 98.8 F Pulse Rate 90 87 90 Respiratory Rate 24 20 21 Blood Pressure 99/57 88/46 O2 Sat by Pulse Oximetry 100 100 98 09/27/21 12:30 09/27/21 12:45 09/27/21 13:00 Temperature 98.8 F Pulse Rate 90 91 H Respiratory Rate 15 22 Blood Pressure 97/51 O2 Sat by Pulse Oximetry 98 97 09/27/21 13:15 09/27/21 13:30 09/27/21 13:45 Temperature 99.4 F Pulse Rate 91 H 105 H 91 H Respiratory Rate 22 33 H 27 H Blood Pressure O2 Sat by Pulse Oximetry 97 98 97 09/27/21 14:00 09/27/21 14:03 09/27/21 14:15 Temperature Pulse Rate 93 H 105 H Respiratory Rate 24 20 19 Blood Pressure 91/53 O2 Sat by Pulse Oximetry 93 L 78 L 09/27/21 14:30 09/27/21 14:33 09/27/21 14:45 Temperature Pulse Rate 109 H 110 H Respiratory Rate 18 18 20 Blood Pressure O2 Sat by Pulse Oximetry 86 L 91 L 09/27/21 15:00 09/27/21 15:15 09/27/21 15:30 Temperature Pulse Rate 107 H 106 H 102 H Respiratory Rate 20 20 18 Blood Pressure 123/58 O2 Sat by Pulse Oximetry 90 L 98 98 09/27/21 15:45 09/27/21 16:00 09/27/21 16:01 Temperature Pulse Rate 106 H 105 H 104 H Respiratory Rate 25 H 30 H 19 Blood Pressure 106/50 O2 Sat by Pulse Oximetry 96 95 95 09/27/21 16:15 09/27/21 16:30 09/27/21 16:35 Temperature 102.4 F H Pulse Rate 99 H 105 H Respiratory Rate 17 16 16 Blood Pressure O2 Sat by Pulse Oximetry 96 88 L 09/27/21 16:45 12/23/21 17:00 09/27/21 17:15 Temperature Pulse Rate 103 H 104 H 98 H Respiratory Rate 19 19 17 Blood Pressure 134/62 O2 Sat by Pulse Oximetry 100 100 99 09/27/21 17:30 09/27/21 17:35 09/27/21 17:47 Temperature Pulse Rate 97 H 98 H Respiratory Rate 16 20 21 Blood Pressure O2 Sat by Pulse Oximetry 98 98 09/27/21 18:00 09/27/21 18:12 09/27/21 18:15 Temperature 102.8 F H Pulse Rate 100 H 102 H Respiratory Rate 17 23 Blood Pressure 110/55 O2 Sat by Pulse Oximetry 97 96 09/27/21 18:30 09/27/21 18:45 09/27/21 19:00 Temperature Pulse Rate 102 H 100 H 124 H Respiratory Rate 13 18 33 H Blood Pressure O2 Sat by Pulse Oximetry 98 97 95 09/27/21 19:01 09/27/21 19:15 09/27/21 19:30 Temperature Pulse Rate 134 H 96 H 92 H Respiratory Rate 42 H 25 H 33 H Blood Pressure 119/63 O2 Sat by Pulse Oximetry 92 L 96 97 09/27/21 19:45 09/27/21 20:00 09/27/21 20:01 Temperature 98.5 F Pulse Rate 87 84 86 Respiratory Rate 25 H 21 16 Blood Pressure 96/51 O2 Sat by Pulse Oximetry 96 97 97 09/27/21 20:15 09/27/21 20:20 09/27/21 20:30 Temperature Pulse Rate 86 90 85 Respiratory Rate 10 L 12 Blood Pressure O2 Sat by Pulse Oximetry 94 L 96 94 L 09/27/21 20:45 09/27/21 21:00 09/27/21 21:15 Temperature Pulse Rate 88 91 H 92 H Respiratory Rate 34 H 25 H 17 Blood Pressure 90/67 O2 Sat by Pulse Oximetry 100 100 100 09/27/21 21:30 09/27/21 21:45 09/27/21 22:00 Temperature Pulse Rate 94 H 93 H 93 H Respiratory Rate 17 17 24 Blood Pressure 88/53 O2 Sat by Pulse Oximetry 98 99 97 09/27/21 22:15 09/27/21 22:30 09/27/21 22:45 Temperature Pulse Rate 93 H 90 86 Respiratory Rate 13 25 H 19 Blood Pressure O2 Sat by Pulse Oximetry 97 97 98 09/27/21 23:00 09/27/21 23:15 09/27/21 23:30 Temperature Pulse Rate 85 83 81 Respiratory Rate 20 17 13 Blood Pressure 92/54 O2 Sat by Pulse Oximetry 98 97 98 09/27/21 23:45 09/28/21 00:00 09/28/21 00:08 Temperature 99.0 F Pulse Rate 84 86 86 Respiratory Rate 13 18 18 Blood Pressure 85/50 85/47 O2 Sat by Pulse Oximetry 97 98 98 09/28/21 00:10 09/28/21 00:15 09/28/21 00:30 Temperature Pulse Rate 91 H 85 82 Respiratory Rate 24 25 H 14 Blood Pressure 86/54 O2 Sat by Pulse Oximetry 99 98 98 09/28/21 00:45 09/28/21 00:59 09/28/21 01:00 Temperature Pulse Rate 90 84 84 Respiratory Rate 21 15 16 Blood Pressure 103/55 O2 Sat by Pulse Oximetry 97 96 96 09/28/21 01:15 09/28/21 01:30 09/28/21 01:45 Temperature Pulse Rate 88 84 85 Respiratory Rate 22 14 14 Blood Pressure O2 Sat by Pulse Oximetry 97 100 100 09/28/21 02:00 09/28/21 02:04 09/28/21 02:15 Temperature Pulse Rate 84 86 87 Respiratory Rate 14 19 18 Blood Pressure 76/44 95/51 O2 Sat by Pulse Oximetry 99 100 100 09/28/21 02:30 09/28/21 02:45 09/28/21 03:00 Temperature Pulse Rate 86 89 90 Respiratory Rate 16 19 16 Blood Pressure 106/59 O2 Sat by Pulse Oximetry 99 100 99 09/28/21 03:15 09/28/21 03:30 09/28/21 03:45 Temperature Pulse Rate 92 H 97 H 94 H Respiratory Rate 21 21 15 Blood Pressure O2 Sat by Pulse Oximetry 100 99 100 09/28/21 04:00 09/28/21 04:15 09/28/21 04:30 Temperature 100.4 F H Pulse Rate 96 H 92 H 99 H Respiratory Rate 32 H 14 23 Blood Pressure 94/50 O2 Sat by Pulse Oximetry 100 100 100 09/28/21 04:45 09/28/21 05:00 09/28/21 05:15 Temperature Pulse Rate 98 H 96 H 92 H Respiratory Rate 17 21 22 Blood Pressure 122/59 O2 Sat by Pulse Oximetry 88 L 100 09/28/21 05:30 09/28/21 05:36 09/28/21 05:45 Temperature Pulse Rate 92 H 94 H Respiratory Rate 13 20 24 Blood Pressure O2 Sat by Pulse Oximetry 100 100 09/28/21 06:00 09/28/21 06:06 09/28/21 06:15 Temperature Pulse Rate 87 89 Respiratory Rate 13 18 16 Blood Pressure 97/53 O2 Sat by Pulse Oximetry 100 100 09/28/21 06:30 09/28/21 06:45 09/28/21 07:00 Temperature Pulse Rate 89 95 H 93 H Respiratory Rate 18 17 21 Blood Pressure 107/57 O2 Sat by Pulse Oximetry 100 100 100 09/28/21 07:15 09/28/21 07:30 09/28/21 07:45 Temperature Pulse Rate 90 91 H 92 H Respiratory Rate 12 Blood Pressure O2 Sat by Pulse Oximetry 100 100 100 09/28/21 08:00 09/28/21 08:15 09/28/21 08:30 Temperature 98.9 F Pulse Rate 91 H 95 H 96 H Respiratory Rate 24 15 26 H Blood Pressure O2 Sat by Pulse Oximetry 96 100 100 09/28/21 08:32 09/28/21 08:45 09/28/21 09:00 Temperature Pulse Rate 91 H 92 H 88 Respiratory Rate 17 20 20 Blood Pressure 116/54 O2 Sat by Pulse Oximetry 95 100 99 09/28/21 09:01 09/28/21 09:15 09/28/21 09:30 Temperature Pulse Rate 91 H 92 H 87 Respiratory Rate 14 25 H 13 Blood Pressure 86/51 O2 Sat by Pulse Oximetry 99 100 100 09/28/21 09:45 09/28/21 10:00 09/28/21 10:15 Temperature Pulse Rate 89 93 H 91 H Respiratory Rate 14 17 33 H Blood Pressure 99/53 O2 Sat by Pulse Oximetry 99 97 86 L 09/28/21 10:30 09/28/21 10:45 09/28/21 11:00 Temperature Pulse Rate 86 93 H 87 Respiratory Rate 37 H 17 16 Blood Pressure 87/52 O2 Sat by Pulse Oximetry 87 L 100 99 09/28/21 11:15 09/28/21 11:30 09/28/21 11:45 Temperature Pulse Rate 90 88 92 H Respiratory Rate 16 12 28 H Blood Pressure O2 Sat by Pulse Oximetry 95 90 L Labs: Laboratory Last Values WBC 11.9 X10^3/uL (3.6-10.0) H 09/28/21 04:52 RBC 3.54 X10^6/uL (3.5-5.4) 09/28/21 04:52 Hgb 9.7 g/dL (12.0-16.0) L 09/28/21 04:52 Hct 29.7 % (36.0-47.0) L 09/28/21 04:52 MCV 84.0 fL (80.0-100.0) 09/28/21 04:52 MCH 27.5 pg (27.0-34.0) 09/28/21 04:52 MCHC 32.8 g/dL (33.0-35.0) L 09/28/21 04:52 RDW 16.1 % (11.6-16.5) 09/28/21 04:52 Plt Count 214 X10^3/uL (150.0-450.0) 09/28/21 04:52 MPV 8.1 fL (7.4-11.0) 09/28/21 04:52 Neut % (Auto) 86.9 % (42.0-75.0) H 09/28/21 04:52 Lymph % (Auto) 7.0 % (21.0-51.0) L 09/28/21 04:52 Teller % (Auto) 4.9 % (0.0-13.0) 09/28/21 04:52 Eos % (Auto) 0.8 % (0.9-2.9) L 09/28/21 04:52 Baso % (Auto) 0.4 % (0.2-1.0) 09/28/21 04:52 Neut # (Auto) 10.4 x10^3/uL (2.2-4.8) H 09/28/21 04:52 Lymph # (Auto) 0.8 X10^3/uL (1.3-2.9) L 09/28/21 04:52 Teller # (Auto) 0.6 x10^3/uL (0.3-0.8) 09/28/21 04:52 Eos # (Auto) 0.1 x10^3/uL (0.0-0.2) 09/28/21 04:52 Baso # (Auto) 0.1 X10^3/uL (0.0-0.1) 09/28/21 04:52 Absolute Nucleated RBC 0.0 /100WBC 09/28/21 04:52 PT 15.1 SECONDS (11.8-14.3) 09/24/21 19:58 INR Target Range - 09/24/21 19:58 INR 1.25 (0.8-1.3) 09/24/21 19:58 APTT 31.5 SECONDS (22.9-36.5) 09/24/21 19:58 PTT Comment - 09/24/21 19:58 Sodium 134 mmol/L (136-145) L 09/28/21 04:52 Corrected Sodium TNP 09/28/21 04:52 Potassium 3.9 mmol/L (3.5-5.1) 09/28/21 09:14 Chloride 100 mmol/L (98-107) 09/28/21 04:52 Carbon Dioxide 28.8 mmol/L (21-32) 09/28/21 04:52 BUN 7 mg/dL (7-18) 09/28/21 04:52 Creatinine 0.79 mg/dL (0.55-1.02) 09/28/21 04:52 Est GFR (MDRD) Af Amer > 60 (>60) 09/28/21 04:52 Est GFR (MDRD) Non-Af > 60 (>60) 09/28/21 04:52 Glucose 110 mg/dL (65-99) H 09/28/21 04:52 POC Glucose (mg/dL) 108 mg/dL (65-99) H 09/28/21 11:27 Calcium 8.2 mg/dL (8.5-10.1) L 09/28/21 04:52 Corrected Calcium 9.8 mg/dL (8.5-10.1) 09/27/21 04:34 Magnesium 1.9 mg/dL (1.7-2.9) 09/26/21 04:31 Total Bilirubin 0.30 mg/dL (0.2-1.0) 09/27/21 04:34 AST 27 Units/L (15-37) 09/27/21 04:34 ALT 22 Units/L (12-78) 09/27/21 04:34 Alkaline Phosphatase 84 Units/L (46-116) 09/27/21 04:34 Total Protein 6.5 g/dL (6.4-8.2) 09/27/21 04:34 Albumin 2.1 g/dL (3.4-5.0) L 09/27/21 04:34 Globulin 4.4 g/dL (2.5-4.5) 09/27/21 04:34 Albumin/Globulin Ratio 0.5 Ratio (1.1-2.1) L 09/27/21 04:34 SARS-CoV-2 (PCR) Negative (NEGATIVE) 09/24/21 16:50 Influenza Type A (PCR) Negative (NEGATIVE) 09/24/21 16:50 Influenza Type B (PCR) Negative (NEGATIVE) 09/24/21 16:50 RSV (PCR) Negative (NEGATIVE) 09/24/21 16:50 Reason For Visit: RIGHT GROIN ANEURYSM Discharge Date Discharge Date: 09/28/21 Discharge Diagnosis All Active Problems (Updated 09/25/21 @ 11:31 by Wilver Lima) Diabetes 1.5, managed as type 1 (Acute) Hypertension (Acute) Femoral artery aneurysm, right (Acute) COVID-19 (Acute) Patient left without being seen (Acute) Critical limb ischemia with history of revascularization of same extremity (Acute) Peripheral vascular disease (Acute) Plan of Treatment: Continue with present treatment and follow up plan. Pt is to keep follow up appointment as instructed and take medications as ordered. Discharge Medications Discharge Medications: diazepam [From Valium] Allergy (Intermediate, Verified 05/02/21 11:20) ants crawling on skin acetaminophen [From Percocet] Allergy (Mild, Verified 09/25/21 17:14) RASH oxycodone [From Percocet] Allergy (Mild, Verified 09/25/21 17:14) RASH Sulfa (Sulfonamide Antibiotics) [SULFA] Allergy (Mild, Verified 05/02/21 11:20) fever New Prescriptions oxycodone-acetaminophen [Percocet] 1 tab PO Q6H PRN #40 tab MDD 6 09/28/21 [Rx] Discharge Disposition Assessment: status post thrombosis of right groin pseudoaneurysm Discharge Disposition: stable Discharge Condition: stable Discharge Plan Discharge Plan Hospital Course: 70 year old female who has had bilateral lower extremity peripheral vascular interventions. Her post-operative care was complicated by a prolonged hospitalization due to COVID. She has been doing well and about to close a wound in the right upper thigh. She presented acutely to my office on September 25 with acute swelling the right groin from three days prior .The swelling was pulsatile. This is over a area ofendarterctomy of the femoral artery with patch angioplasty done two months prior. She was admitted immediately to the ICU for observation .Doppler studies showing a large Call [place] is in which appeared to originate from the apex of the patch. 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 ultrasound documented resolution of flow in the aneurysm but there was still flow in the soboba vessel.The right groin has been studied twice at the bedside with ultrasound since the surgery and there is no slow in the aneurysm. Flow remains in the soboba vessels. She will be discharged home on her usual medications except for Plavix. To be given Percocet 5 mg tablets one every six hours. Pain , #40 Patient Disposition: 01 HOME, SELF-CARE Condition: Stable Health Concerns: Post Hospitalization: new medications and changes needed to prevent readmission or further decline. Pt educated and given instructions on all concerns. Care Plan Goals: Problem: Cardiac Complications Goal: Early Recognition of cardiac complications for prompt intervention Instructions: Follow provided instructions. Follow up with primary physician as directed. Contact primary care physician or report to the closest Emergency Room if condition worsens. Plan of Treatment: Continue with present treatment and follow up plan. Pt is to keep follow up appointment as instructed and take medications as ordered. Assessment: status post thrombosis of right groin pseudoaneurysm Prescription drug monitoring program results: PDMP reviewed and no concerns identified Prescriptions: New oxycodone-acetaminophen [Percocet] 5-325 mg tablet 1 tab PO Q6H MDD 6 PRNQty: 40 RF: 0 Continued atorvastatin 40 mg tablet 40 mg PO HS RF: 0 valsartan 80 mg Tablet 80 mg PO QAM PRN (Reason: blood pressure sys >160) RF: 0 Follow ups/Referrals Follow ups/Referrals: Wilver Lima [STAFF PHYSICIAN] - 1 WEEK Heraclio Bagley [Primary Care Provider] - (Follow up with PCP as needed.) Instructions Instructions: Fall Prevention in the Home, Adult, [id number], Peripheral Vascular Disease, [id number], Chronic Obstructive Pulmonary Disease, [id number], Hypertension, Adult, Fxgx-[id number], Type 1 Diabetes Mellitus, Self- Care, Adult, [id number], Pseudoaneurysm Stand Alone Forms: Precautions for [place] [id number] [facility], Patient Portal, Social Distancing
== END 2021-09-28 14:00 | disposition home or self-care (01) | DRG 301 ==
LOC: ICU
PROVIDERS: ADMIT Surgery; ATTEND Surgery
DX: Z20.822 Contact with and (suspected) exposure to COVID-19; I10 Essential (primary) hypertension; R50.82 Postprocedural fever; I73.89 Other specified peripheral vascular diseases; I72.4 Aneurysm of artery of lower extremity; E11.65 Type 2 diabetes mellitus with hyperglycemia; I70.221 Atherosclerosis of native arteries of extremities with rest pain, right leg; Z72.0 Tobacco use

== ENCOUNTER 2021-09-29 15:19 | Inpatient (IN) ==
[2021-09-29 15:28] VITALS: BMI 21.4
--- NOTE | 2021-09-29 15:44 | DR.GENAD ---
HPI Time Seen Time Seen by Provider: 09/29/21 15:39 PCP Primary Care Physician: DR ALBERTO Complaint/Symptoms Chief Complaint Doctors Comments: 70 y/o female had R femoral artery procedure done 2 days ago, 09/27, U/S guided thrombosis of R femoral artery pseudoaneurysm. Was d/c'd home yesterday. About 3 hours ago, had gush of bloody d/c from upper femoral wound, with subsequent oozing. Having swelling of the site, but has been swollen. + fever here. Denies any cough, congestion, dyspnea, N/V, diarrhea, abdominal pain. No urinary symptoms, but hasn't urinated since this am. + h/o vascular procedures in the past, had a R psudoaneurysm x 2+ mo nths. Chief Complaint:: PT IS S/P U/S GUIDED THROMBOSIS OF RIGHT FEMORAL ARTERY PSEUDOANEURYSM ON 09/27/[address] LIMA. SINCE D/C HOME ON 09/28/21 SHE HAS NOTICED INCREASED SWELLING TO SITE IN RIGHT GROIN. TODAY AROUND NOON SHE STARTED BLEEDING FROM SITE IN RIGHT GROIN AND WAS UNABLE TO CONTROL IT. [facility] APPLIED PRESSURE DRESSING AND PT SPOKE WITH DR LIMA WHO INSTRUCTED HER TO COME TO ER. COVID-19 Coronavirus risk:travel/contact w/high risk person: No Has patient experienced Coronavirus symptoms: No Nurses notes reviewed Nurses Notes Review: Yes Source History Provided: Patient Mode of Arrival Mode of Arrival: Wheelchair Timing Onset of Chief Complaint: 09/29/21 PMH PMH Past Medical History: Yes Past Medical History: CVA, Diabetes and Hypertension Past Surgical History: Yes Surgical History: AAA Repair and Appendectomy Past Surgical History Comment: AAA REPAIR WITH STENT GRAFT AUGUST 2020, BILATERAL LOWER EXTREMITY PERIPHERAL INTERVENTION Family History History of Family Medical Conditions: Yes Family Medical History: Diabetes Mellitus, [place], Heart Failure and Hypertension Social History Does patient currently use any type of tobacco product: Yes Have you used tobacco products in the last 12 months: Yes Type of Tobacco Use: Cigarettes Does any household member use tobacco: No Alcohol Use: None Do you use any recreational Drugs:: No Lives With: Family Lives Where: Home Travel Risk Coronavirus risk:travel/contact w/high risk person: No Has patient experienced Coronavirus symptoms: No Infectious screening In the last 2 months have you had wt loss of >10#?: NO Have you had fever, night sweats or hemotysis?: No Have you traveled outside the country in the last 6 months?: No Isolation: Standard ROS Review of Systems Constitutional: Fever Eyes: No Symptoms Reported ENTM: No Symptoms Reported Respiratoy: No Symptoms Reported Cardiovascular: No Symptoms Reported Gastrointestinal/Abdominal: No Symptoms Reported Genitourinary: No Symptoms Reported Neurological: No Symptoms Reported Musculoskeletal: No Symptoms Reported Integumentary: No Symptoms Reported Hematologic/Lymphatic: No Symptoms Reported Psychiatric: No Symptoms Reported All Other Systems: Reviewed and Negative PE Vital Signs Vitals: Temperature 101.7 F Pulse Rate [Left Radial] 103 Respiratory Rate 20 Blood Pressure [Right Arm] 111/55 Blood Pressure 87/52 O2 Sat by Pulse Oximetry 98 General Limitations: No Limitations General Appearance: Alert and In No Apparent Distress Eyes Eye exam: Normal Appearance and PERRL ENT ENT Exam: Normal Exam Neck Neck Exam: Normal Inspection and Full ROM Chest Chest Inspection: Normal Inspection Respiratory Respiratory Exam: Normal Lung Sounds Bilat; negative Accessory Muscle Use and Respiratory Distress Respiratory Exam: Bilateral: Clear to Auscultation Cardiovascular Cardiovascular Exam: Regular Rate, Normal Rhythm and Normal Heart Sounds Abdominal Exam Abdominal Exam: Normal Inspection; negative Tenderness Extremities Extremities Exam: Other (+ large indurated area, with erythema and tenderness of R proximal thigh, slight serosanguinous oozing of center with compression. Not actively bleeding. Good distal pulses ) Neurologic Neurological Exam: Alert, Oriented X3 and CN II-XII Intact; negative Motor Sensory Deficit Psychiatric Psychiatric Exam: Normal Affect Skin Skin Exam: Warm and Dry MDM Differential Diagnosis Differential Diagnosis: cellulitis, bleeding of surgical site, acute febrile illness. COURSE Treatment Treatment: 70 y/o female with bleeding/drainage from her surgical site of 2 days ago. Temp 101 here. Wound with surrounding induration, ecchymosis. U/S not available today for additional evaluation. W/u initiated. Labs overall acc eptable. WBC 10,600. Not actively bleeding. Discussed with her surgeon, Dr. Lima. Recommend admission for IV antibiotics, further observation. Discussed with the covering hospitalist, Dr Yap, accepts the admission. ROR Labs Reviewed Result Diagrams: 09/29/21 16:13 09/29/21 16:13 Laboratory: WBC 10.6 X10^3/uL (3.6-10.0) H 09/29/21 16:13 RBC 3.51 X10^6/uL (3.5-5.4) 09/29/21 16:13 Hgb 9.6 g/dL (12.0-16.0) L 09/29/21 16:13 Hct 29.6 % (36.0-47.0) L 09/29/21 16:13 MCV 84.3 fL (80.0-100.0) 09/29/21 16:13 MCH 27.5 pg (27.0-34.0) 09/29/21 16:13 MCHC 32.6 g/dL (33.0-35.0) L 09/29/21 16:13 RDW 16.0 % (11.6-16.5) 09/29/21 16:13 Plt Count 246 X10^3/uL (150.0-450.0) 09/29/21 16:13 Plt Count Comment Adequate (ADEQUATE) 09/29/21 16:13 MPV 8.4 fL (7.4-11.0) 09/29/21 16:13 Neut % (Auto) 91.1 % (42.0-75.0) H 09/29/21 16:13 Lymph % (Auto) 4.3 % (21.0-51.0) L 09/29/21 16:13 Perkins % (Auto) 2.4 % (0.0-13.0) 09/29/21 16:13 Eos % (Auto) 0.7 % (0.9-2.9) L 09/29/21 16:13 Baso % (Auto) 1.5 % (0.2-1.0) H 09/29/21 16:13 Neut # (Auto) 9.6 x10^3/uL (2.2-4.8) H 09/29/21 16:13 Lymph # (Auto) 0.5 X10^3/uL (1.3-2.9) L 09/29/21 16:13 Perkins # (Auto) 0.2 x10^3/uL (0.3-0.8) L 09/29/21 16:13 Eos # (Auto) 0.1 x10^3/uL (0.0-0.2) 09/29/21 16:13 Baso # (Auto) 0.2 X10^3/uL (0.0-0.1) H 09/29/21 16:13 Absolute Nucleated RBC 0.0 /100WBC 09/29/21 16:13 Total Counted 100 09/29/21 16:13 Neutrophils % (Manual) 89 % (39-76) H 09/29/21 16:13 Lymphocytes % (Manual) 6 % (13-43) L 09/29/21 16:13 Monocytes % (Manual) 4 % (4-9) 09/29/21 16:13 Eosinophils % (Manual) 1 % (0-6) 09/29/21 16:13 Plt Morphology Comment Normal (NORMAL) 09/29/21 16:13 RBC Morphology Normal (NORMAL) 09/29/21 16:13 PT 16.7 SECONDS (11.8-14.3) 09/29/21 16:09 INR Target Range - 09/29/21 16:09 INR 1.43 (0.8-1.3) H 09/29/21 16:09 APTT 39.1 SECONDS (22.9-36.5) H 09/29/21 16:09 PTT Comment - 09/29/21 16:09 Sodium 136 mmol/L (136-145) 09/29/21 16:13 Corrected Sodium 137 mmol/L (136-145) 09/29/21 16:13 Potassium 3.2 mmol/L (3.5-5.1) L 09/29/21 16:13 Chloride 101 mmol/L (98-107) 09/29/21 16:13 Carbon Dioxide 27.9 mmol/L (21-32) 09/29/21 16:13 BUN 10 mg/dL (7-18) 09/29/21 16:13 Creatinine 0.88 mg/dL (0.55-1.02) 09/29/21 16:13 Est GFR (MDRD) Af Amer > 60 (>60) 09/29/21 16:13 Est GFR (MDRD) Non-Af > 60 (>60) 09/29/21 16:13 Glucose 135 mg/dL (65-99) H 09/29/21 16:13 Lactic Acid 1.3 mmol/L (0.4-2.0) 09/29/21 16:13 Calcium 8.4 mg/dL (8.5-10.1) L 09/29/21 16:13 Corrected Calcium 10.1 mg/dL (8.5-10.1) 09/29/21 16:13 Total Bilirubin 0.30 mg/dL (0.2-1.0) 09/29/21 16:13 AST 21 Units/L (15-37) 09/29/21 16:13 ALT 17 Units/L (12-78) 09/29/21 16:13 Alkaline Phosphatase 91 Units/L (46-116) 09/29/21 16:13 Creatine Kinase 109 Units/L (26-192) 09/29/21 16:13 CK-MB (CK-2) < 1.0 ng/mL (0-4.0) 09/29/21 16:13 CK/CKMB % Calc 0.9 % (<4) 09/29/21 16:13 Troponin I 0.03 ng/mL (0-1.5) 09/29/21 16:13 Total Protein 6.8 g/dL (6.4-8.2) 09/29/21 16:13 Albumin 1.9 g/dL (3.4-5.0) L 09/29/21 16:13 Globulin 4.9 g/dL (2.5-4.5) H 09/29/21 16:13 Albumin/Globulin Ratio 0.4 Ratio (1.1-2.1) L 09/29/21 16:13 Opioid Opioid Risk Tool Age (Harlan box if 16-45): No History of Preadolescent Sexual Abuse: No Total: 0 Total Score Risk Category: Low Risk Copyright: Luis A ALVARENGA predicting aberrant behaviors Diagnosis Discharge Problem: Febrile illness, acute Abnormal surgical wound Qualifiers: Encounter type: initial encounter Qualified Code(s): T81.9XXA - Unspecified complication of procedure, initial encounter
[2021-09-29] MEDS ORDERED: NS 500 ML IV 500 ML IV ONE (15:52)
[2021-09-29] MEDS ORDERED: TYLENOL 500 MG TAB EXTRA STRENGTH PO ONE ×2 (15:52→16:04)
[2021-09-29] MEDS ORDERED: NS 1,000 ML IV 1,000 ML ONE (16:04)
--- NOTE | 2021-09-29 16:17 | RAD ---
HISTORYfever, right leg swelling, rfemoral artery repair on friday Triple A repair,STUDYCHEST, 1 [id number] cardiomediastinal silhouette. Stable peripheral fibrotic changes. No consolidation, pulmonary edema, sizable pleural effusion, or visible pneumothorax. No acute osseous finding. Aortic endograft partially seen.IMPRESSIONStable nonacute chest exam.Electronically signed by: Bubba Haines (Sep 29, 2021 16:15:06)
[2021-09-29 16:33] LABS: BASOPHILS # (AUTO) 0.2 X10^3/uL (0.0-0.1); BASOPHILS % (AUTO) 1.5 % (0.2-1.0); EOSINOPHILS # (AUTO) 0.1 x10^3/uL (0.0-0.2); EOSINOPHILS % (AUTO) 0.7 % (0.9-2.9); HEMATOCRIT 29.6 % (36.0-47.0); HEMOGLOBIN 9.6 g/dL (12.0-16.0); LYMPHOCYTES # (AUTO) 0.5 X10^3/uL (1.3-2.9); LYMPHOCYTES % (AUTO) 4.3 % (21.0-51.0); MEAN CORPUSCULAR HEMOGLOBIN 27.5 pg (27.0-34.0); MEAN CORPUSCULAR HGB CONC 32.6 g/dL (33.0-35.0); MEAN CORPUSCULAR VOLUME 84.3 fL (80.0-100.0); MEAN PLATELET VOLUME 8.4 fL (7.4-11.0); MONOCYTES # (AUTO) 0.2 x10^3/uL (0.3-0.8); MONOCYTES % (AUTO) 2.4 % (0.0-13.0); NEUTROPHILS # (AUTO) 9.6 x10^3/uL (2.2-4.8); NEUTROPHILS % (AUTO) 91.1 % (42.0-75.0); PLATELET COUNT 246 X10^3/uL (150.0-450.0); RED BLOOD COUNT 3.51 X10^6/uL (3.5-5.4); WHITE BLOOD COUNT 10.6 X10^3/uL (3.6-10.0)
[2021-09-29 16:46] LABS: LACTIC ACID 1.3 mmol/L (0.4-2.0)
[2021-09-29 16:51] LABS: ALANINE AMINOTRANSFERASE 17 Units/L (12-78); ALBUMIN 1.9 g/dL (3.4-5.0); ALKALINE PHOSPHATASE 91 Units/L (46-116); ASPARTATE AMINO TRANSFERASE 21 Units/L (15-37); BLOOD UREA NITROGEN 10 mg/dL (7-18); CALCIUM 8.4 mg/dL (8.5-10.1); CARBON DIOXIDE 27.9 mmol/L (21-32); CHLORIDE 101 mmol/L (98-107); CKMB % 0.9 % (<4); COR CA(FOR HYPOALB) 10.1 mg/dL (8.5-10.1); COR NA(FOR HYPERGLY) 137 mmol/L (136-145); CREATINE KINASE 109 Units/L (26-192); CREATINE KINASE MB < 1.0 ng/mL (0-4.0); CREATININE 0.88 mg/dL (0.55-1.02); PLATELET MORPHOLOGY COMMENT NORMAL (NORMAL); SODIUM 136 mmol/L (136-145); TOTAL PROTEIN 6.8 g/dL (6.4-8.2); TROPONIN I 0.03 ng/mL (0-1.5); eGFR NON BLACK RACES > 60 (>60)
[2021-09-29] MEDS ORDERED: ZOSYN VIAL 3.375 GRAMS 3.375 G in NS 100 ML IV + SPIKE MINIBAG* 100 ML IV ONE (17:12)
[2021-09-29] MEDS ORDERED: ZOSYN VIAL 3.375 GRAMS IV ONE (17:20)
[2021-09-29] MEDS ORDERED: NS 100 ML IV + SPIKE MINIBAG* 100 ML IV ONE (17:21)
[2021-09-29] MEDS ORDERED: PERCOCET TAB 5/325 MG PO PRN (17:22)
[2021-09-29] MEDS: ZOSYN VIAL 3.375 GRAMS 3.375 G in NS 100 ML IV + SPIKE MINIBAG* 100 ML IV SCH ×2 (17:26→21:32)
[2021-09-29] MEDS ORDERED: NORCO 5/325 MG TAB PO PRN (21:21)
[2021-09-29] MEDS: LIPITOR TAB 40 MG PO SCH (21:32)
[2021-09-29 23:50] LABS: BILIRUBIN,URINE NEGATIVE (NEGATIVE); BLOOD/HEMOGLOBIN,URINE 3+ (NEGATIVE); GLUCOSE, URINE NEGATIVE (NEGATIVE); KETONES,URINE NEGATIVE (NEGATIVE); LEUKOCYTE ESTERASE ,URINE 1+ (NEGATIVE); NITRITES,URINE NEGATIVE (NEGATIVE); PROTEIN,URINE 2+ (NEGATIVE); UROBILINOGEN,URINE 1+ (NORMAL)
[2021-09-29 23:58] LABS: APPEARANCE,URINE CLEAR (CLEAR); BACTERIA,URINE TRACE /HPF (NEGATIVE); COLOR,URINE YELLOW (YELLOW); MUCUS,URINE FEW /HPF (NEGATIVE); RBC,URINE 0-2 /HPF (0-3); SQUAMOUS EPITHELIAL CELL,UR NUMEROUS /HPF (NEGATIVE)
[2021-09-30 04:46] LABS: BASOPHILS # (AUTO) 0.1 X10^3/uL (0.0-0.1); BASOPHILS % (AUTO) 1.2 % (0.2-1.0); EOSINOPHILS # (AUTO) 0.2 x10^3/uL (0.0-0.2); EOSINOPHILS % (AUTO) 2.1 % (0.9-2.9); HEMATOCRIT 25.1 % (36.0-47.0); HEMOGLOBIN 8.6 g/dL (12.0-16.0); LYMPHOCYTES # (AUTO) 0.8 X10^3/uL (1.3-2.9); LYMPHOCYTES % (AUTO) 9.5 % (21.0-51.0); MEAN CORPUSCULAR HEMOGLOBIN 28.4 pg (27.0-34.0); MEAN CORPUSCULAR HGB CONC 34.1 g/dL (33.0-35.0); MEAN CORPUSCULAR VOLUME 83.3 fL (80.0-100.0); MEAN PLATELET VOLUME 8.3 fL (7.4-11.0); MONOCYTES # (AUTO) 0.3 x10^3/uL (0.3-0.8); MONOCYTES % (AUTO) 3.9 % (0.0-13.0); NEUTROPHILS # (AUTO) 7.3 x10^3/uL (2.2-4.8); NEUTROPHILS % (AUTO) 83.3 % (42.0-75.0); PLATELET COUNT 252 X10^3/uL (150.0-450.0); RED BLOOD COUNT 3.02 X10^6/uL (3.5-5.4); RED CELL DISTRIBUTION WIDTH 16.5 % (11.6-16.5); WHITE BLOOD COUNT 8.8 X10^3/uL (3.6-10.0)
[2021-09-30 05:00] LABS: ALANINE AMINOTRANSFERASE 14 Units/L (12-78); ALBUMIN 1.7 g/dL (3.4-5.0); ALKALINE PHOSPHATASE 81 Units/L (46-116); ASPARTATE AMINO TRANSFERASE 22 Units/L (15-37); BLOOD UREA NITROGEN 11 mg/dL (7-18); CARBON DIOXIDE 28.7 mmol/L (21-32); CHLORIDE 103 mmol/L (98-107); COR CA(FOR HYPOALB) 9.8 mg/dL (8.5-10.1); COR NA(FOR HYPERGLY) 140 mmol/L (136-145); CREATININE 0.79 mg/dL (0.55-1.02); SODIUM 139 mmol/L (136-145); TOTAL PROTEIN 5.9 g/dL (6.4-8.2); eGFR NON BLACK RACES > 60 (>60)
[2021-09-30] MEDS: ZOSYN VIAL 3.375 GRAMS 3.375 G in NS 100 ML IV + SPIKE MINIBAG* 100 ML IV SCH ×3 (05:25→21:07)
[2021-09-30] MEDS ORDERED: MOTRIN TAB 600 MG PO PRN (09:51)
--- NOTE | 2021-09-30 10:00 | DR.UPDATE ---
H&P Update History and Physical Update: History and Physical reviewed and patient examined. Changes noted: Yes with the following: IS A 70 YEAR OLD PATIENT WHO WAS RECENTLY TREATED IN THE HOSPITAL BY , GENERAL/VASCULAR SURGEON. PATIENT HAD ULTRASOUND GUIDED THROMBOSIS OF THE RIGHT FEMORAL ARTERY PSEUDOANEURYSM USING THROMBIN INJECTION ON 09/27/21. SHE WAS DISCHARGED HOME ON 09/28. SHE RETURNED TO THE ER ON 09/29 WITH REPORTS OF SWELLING OF THE RIGHT LOWER EXTREMITY, PAIN TO THE RIGHT LOWER EXTREMITY, AND MODERATE BLEEDING FROM THE UPPER FEMORAL WOUND WITH SUBSEQUENT OOZING. PATIENT REPORTS THAT SHE WAS UNABLE TO CONTROL BLEEDING AT HOME. ON ARRIVAL TO THE ER, VITALS WERE 101.7-100-20-98%-111/55. LABS WERE OBTAINED. ABNORMAL LAB VALUES INCLUDE THE FOLLOWING: WBC 10.6, HGB 9.6, HCT 29.6, INR 1.43, PTT 39.1, POTASSIUM 3.2, GLUCOSE 135, CALCIUM 8.4, ALBUMIN 1.9, GLOBULIN 4.9. URINALYSIS REVEALED: WBC 3-5, RBC 0-2, LEUKOCYTES 1+, OCCULT BLOOD 3+, PROTEIN 2+. COVID-19 NEGATIVE. BLOOD AND WOUND CULTURES WERE SET UP. A CHEST XRAY WAS OBTAINED AND REVEALED: STABLE NONACUTE CHEST EXAM. BLEEDING WAS CONTROLLED IN THE ER AND A PRESSURE DRESSING WAS APPLIED. WAS CONSULTED. HE REPORTED BEING OUT OF TOWN, BUT WOULD SEE THE PATIENT WHEN HE RETURNED. PATIENT WAS ADMITTED TO THE HOSPITAL FOR FURTHER EVALUATION AND TREATMENT. SHE WAS STARTED ON ZOSYN 3.375G IV TID, LIPITOR 40MG PO HS, DILAUDID 1-2MG IV Q4H PRN, TRAMADOL 100MG PO Q6H PRN, AND MOTRN 600MG PO TID PRN. OTHERWISE, WE PLAN TO FOLLOW UO WITH AM LABS AND CONTINUE TO MONITOR. TIME SPENT ON CLINICAL ASSESSMENT, REVIEWING LABS AND IMAGING, DECISION MAKING, AND DOCUMENTATION GREATER THAN 75 MINUTES. H&P Reviewed: Yes Patient was examined?: Yes
[2021-09-30] MEDS: ULTRAM PO PRN ×2 (10:34→17:52)
[2021-09-30] MEDS: DILAUDID INJ IVP PRN ×2 (13:51→20:00)
[2021-09-30] MEDS: LIPITOR TAB 40 MG PO SCH (21:07)
[2021-09-30] MEDS ORDERED: NS 100 ML IV 100 ML ONE ×2 (21:29→21:33)
[2021-10-01 05:13] LABS: BASOPHILS % (AUTO) 0.4 % (0.2-1.0); EOSINOPHILS # (AUTO) 0.1 x10^3/uL (0.0-0.2); EOSINOPHILS % (AUTO) 1.7 % (0.9-2.9); HEMATOCRIT 28.6 % (36.0-47.0); HEMOGLOBIN 9.6 g/dL (12.0-16.0); LYMPHOCYTES # (AUTO) 0.8 X10^3/uL (1.3-2.9); LYMPHOCYTES % (AUTO) 10.2 % (21.0-51.0); MEAN CORPUSCULAR HEMOGLOBIN 27.9 pg (27.0-34.0); MEAN CORPUSCULAR HGB CONC 33.6 g/dL (33.0-35.0); MEAN CORPUSCULAR VOLUME 82.9 fL (80.0-100.0); MEAN PLATELET VOLUME 8.2 fL (7.4-11.0); MONOCYTES # (AUTO) 0.4 x10^3/uL (0.3-0.8); MONOCYTES % (AUTO) 5.2 % (0.0-13.0); NEUTROPHILS # (AUTO) 6.5 x10^3/uL (2.2-4.8); NEUTROPHILS % (AUTO) 82.5 % (42.0-75.0); PLATELET COUNT 298 X10^3/uL (150.0-450.0); RED BLOOD COUNT 3.45 X10^6/uL (3.5-5.4); RED CELL DISTRIBUTION WIDTH 16.6 % (11.6-16.5); WHITE BLOOD COUNT 7.9 X10^3/uL (3.6-10.0)
[2021-10-01] MEDS: ULTRAM PO PRN ×2 (05:14→21:12)
[2021-10-01] MEDS: ZOSYN VIAL 3.375 GRAMS 3.375 G in NS 100 ML IV + SPIKE MINIBAG* 100 ML IV SCH ×3 (05:14→21:12)
[2021-10-01 05:40] LABS: ALANINE AMINOTRANSFERASE 19 Units/L (12-78); ALBUMIN 1.8 g/dL (3.4-5.0); ALKALINE PHOSPHATASE 108 Units/L (46-116); ASPARTATE AMINO TRANSFERASE 26 Units/L (15-37); BLOOD UREA NITROGEN 9 mg/dL (7-18); CALCIUM 8.2 mg/dL (8.5-10.1); CARBON DIOXIDE 27.5 mmol/L (21-32); CHLORIDE 101 mmol/L (98-107); COR NA(FOR HYPERGLY) 137 mmol/L (136-145); CREATININE 0.78 mg/dL (0.55-1.02); SODIUM 137 mmol/L (136-145); TOTAL PROTEIN 6.3 g/dL (6.4-8.2); eGFR NON BLACK RACES > 60 (>60)
--- NOTE | 2021-10-01 12:43 | US ---
EXTREMITY (PSEUDOANEURYSM)Indication: RT GROIN SWELLING S/P THROMBIN INJECTION TO RT GROIN PSEUDOANEURYSM FRIDAY, FEVERComparison: NoneTechnique: Grayscale and color doppler images of the right groin were obtained.Findings/Impression:Provided grayscale and color Doppler images demonstrate an approximately 7.1 x 6.7 cm complex avascular collection of the right groin, which is suggestive of a hematoma.There is also a pseudoaneurysm of the right groin, which measures approximately 4.3 x 3.7 cm and demonstrate patent color Doppler flow without appreciable internal thrombus formation.Electronically signed by: CARMEN ROWE (Oct 01, 2021 12:42:27)
--- NOTE | 2021-10-01 14:32 | PCM.PROG ---
Progress Note - Progress Note for Day of Date of Exam: 10/01/21 - Subjective Subjective: IS STATUS POST ULTRASOUND GUIDED THROMBOSIS OF THE RIGHT FEMORAL ARTERY PSEUDOANEURYSM USING THROMBIN INJECTION ON 09/27/21. SHE RETURNED TO THE ER ON 07/31 DUE TO UNCONTROLLED BLEEDING FROM SURGICAL SITE. PATIENT ALSO HAD MODERATE SWELLING TO THE RIGHT LOWER EXTREMITY AND FEVER. SHE WAS FEBRILE THROUGHOUT THE NIGHT. TODAY, SHE IS ALERT AND ORIENTED, LYING IN BED ON MORNING ROUNDS. SHE CONTINUES WITH SWELLING AND PAIN TO THE RIGHT LOWER EXTREMITY. DRESSING TO THE RIGHT GROIN IS DRY AND INTACT. HER VITALS THIS MORNING ARE: 99.5-90-18-99%-152/81. LABS WERE OBTAINED. ABNROMAL LAB VALUES INCLUDE THE FOLLOWING: RBC 3.45, HGB 9.6, HCT 28.6, GLUCOSE 118, CALCIUM 8.2, TOTAL PROTEIN 6.3, ALBUMIN 1.8. BLOOD AND WOUND CULTURES WERE SET UP. BLOOD CULTURES PENDING. WOUND CULTURE REVEALED GROWTH OF ENTEROBACTER CLOACAE. , GENERAL/VASCULAR SURGEON WILL SEE PATIENT TODAY. SHE IS CURRENTLY RECEIVING ZOSYN 3.375G IV TID, LIPITOR 40MG PO HS, DILAUDID 1-2MG IV Q4H PRN, TRAMADOL 1 00MG PO Q6H PRN, AND MOTRN 600MG PO TID PRN. WE WILL CONTINUE WITH CURRENT PLAN OF CARE TODAY. OTHERWISE, WE PLAN TO FOLLOW UP WITH AM LABS AND CONTINUE TO MONITOR. TIME SPENT ON CLINICAL ASSESSMENT, REVIEWING LABS AND IMAGING, DECISION MAKING, AND DOCUMENTATION GREATER THAN 45 MINUTES. - Past Medical Family Social History Past Med/Fam/Surg Hx: No changes since H&P Allergies: Allergies diazepam [From Valium] Allergy (Intermediate, Verified 05/02/21 11:20) ants crawling on skin acetaminophen [From Percocet] Allergy (Mild, Verified 09/25/21 17:14) RASH oxycodone [From Percocet] Allergy (Mild, Verified 09/25/21 17:14) RASH Sulfa (Sulfonamide Antibiotics) [SULFA] Allergy (Mild, Verified 05/02/21 11:20) fever - Review of Systems ROS: No change since H&P - Vital Signs and I&O's Vital Signs: Temperature 99 F Pulse Rate [Right Radial] 88 Pulse Rate [Left Radial] 103 Respiratory Rate 18 Blood Pressure [Right Arm] 140/72 Blood Pressure 87/52 O2 Sat by Pulse Oximetry 100 Intake and Output: Intake & Output 09/29/21 09/30/21 10/01/21 10/02/21 11:59 11:59 11:59 11:59 Intake Total 450 / 450 1890 / 1890 Balance 450 / 450 0 / 1890 - Physical Exam Oriented: Normal Eyes: Normal Ear: Normal Nose: Normal Throat: Normal Respiratory: Generalized, Diminished Cardiovascular: Normal : Normal Auscultation: Bowel Sounds: Normal Palpation: Normal Tenderness: Normal Skin: Red (RIGHT LOWER EXTREMITY ), Tender, Hot, Wound (RIGHT GROIN) Musculoskeletal: Right, Leg, Swelling, Tender Psychiatric: Normal Mood Description: Calm Affect: Normal Speech Pattern: Clear, Appropriate - Laboratory and Diagnostics Result Diagrams: 10/02/21 04:07 10/02/21 04:07 Labs: 09/29/21 16:13 Blood Blood Culture - Preliminary 09/29/21 16:09 Blood Blood Culture - Preliminary 09/29/21 18:36 Leg - Right Wound Gram Stain - Final 09/29/21 18:36 Leg - Right Wound Culture - Final Enterobacter Cloacae Laboratory WBC 7.9 X10^3/uL (3.6-10.0) 10/01/21 04:00 RBC 3.45 X10^6/uL (3.5-5.4) L 10/01/21 04:00 Hgb 9.6 g/dL (12.0-16.0) L 10/01/21 04:00 Hct 28.6 % (36.0-47.0) L 10/01/21 04:00 MCV 82.9 fL (80.0-100.0) 10/01/21 04:00 MCH 27.9 pg (27.0-34.0) 10/01/21 04:00 MCHC 33.6 g/dL (33.0-35.0) 10/01/21 04:00 RDW 16.6 % (11.6-16.5) H 10/01/21 04:00 Plt Count 298 X10^3/uL (150.0-450.0) 10/01/21 04:00 Plt Count Comment Adequate (ADEQUATE) 09/29/21 16:13 MPV 8.2 fL (7.4-11.0) 10/01/21 04:00 Neut % (Auto) 82.5 % (42.0-75.0) H 10/01/21 04:00 Lymph % (Auto) 10.2 % (21.0-51.0) L 10/01/21 04:00 Schleicher % (Auto) 5.2 % (0.0-13.0) 10/01/21 04:00 Eos % (Auto) 1.7 % (0.9-2.9) 10/01/21 04:00 Baso % (Auto) 0.4 % (0.2-1.0) 10/01/21 04:00 Neut # (Auto) 6.5 x10^3/uL (2.2-4.8) H 10/01/21 04:00 Lymph # (Auto) 0.8 X10^3/uL (1.3-2.9) L 10/01/21 04:00 Schleicher # (Auto) 0.4 x10^3/uL (0.3-0.8) 10/01/21 04:00 Eos # (Auto) 0.1 x10^3/uL (0.0-0.2) 10/01/21 04:00 Baso # (Auto) 0.0 X10^3/uL (0.0-0.1) 10/01/21 04:00 Absolute Nucleated RBC 0.0 /100WBC 10/01/21 04:00 Total Counted 100 09/29/21 16:13 Neutrophils % (Manual) 89 % (39-76) H 09/29/21 16:13 Lymphocytes % (Manual) 6 % (13-43) L 09/29/21 16:13 Monocytes % (Manual) 4 % (4-9) 09/29/21 16:13 Eosinophils % (Manual) 1 % (0-6) 09/29/21 16:13 Plt Morphology Comment Normal (NORMAL) 09/29/21 16:13 RBC Morphology Normal (NORMAL) 09/29/21 16:13 PT 16.7 SECONDS (11.8-14.3) 09/29/21 16:09 INR Target Range - 09/29/21 16:09 INR 1.43 (0.8-1.3) H 09/29/21 16:09 APTT 39.1 SECONDS (22.9-36.5) H 09/29/21 16:09 PTT Comment - 09/29/21 16:09 Sodium 137 mmol/L (136-145) 10/01/21 04:00 Corrected Sodium 137 mmol/L (136-145) 10/01/21 04:00 Potassium 4.1 mmol/L (3.5-5.1) 10/01/21 04:00 Chloride 101 mmol/L (98-107) 10/01/21 04:00 Carbon Dioxide 27.5 mmol/L (21-32) 10/01/21 04:00 BUN 9 mg/dL (7-18) 10/01/21 04:00 Creatinine 0.78 mg/dL (0.55-1.02) 10/01/21 04:00 Est GFR (MDRD) Af Amer > 60 (>60) 10/01/21 04:00 Est GFR (MDRD) Non-Af > 60 (>60) 10/01/21 04:00 Glucose 118 mg/dL (65-99) H 10/01/21 04:00 Lactic Acid 1.3 mmol/L (0.4-2.0) 09/29/21 16:13 Calcium 8.2 mg/dL (8.5-10.1) L 10/01/21 04:00 Corrected Calcium 10.0 mg/dL (8.5-10.1) 10/01/21 04:00 Magnesium 2.0 mg/dL (1.7-2.9) 09/30/21 04:10 Total Bilirubin 0.30 mg/dL (0.2-1.0) 10/01/21 04:00 AST 26 Units/L (15-37) 10/01/21 04:00 ALT 19 Units/L (12-78) 10/01/21 04:00 Alkaline Phosphatase 108 Units/L (46-116) 10/01/21 04:00 Creatine Kinase 109 Units/L (26-192) 09/29/21 16:13 CK-MB (CK-2) < 1.0 ng/mL (0-4.0) 09/29/21 16:13 CK/CKMB % Calc 0.9 % (<4) 09/29/21 16:13 Troponin I 0.03 ng/mL (0-1.5) 09/29/21 16:13 Total Protein 6.3 g/dL (6.4-8.2) L 10/01/21 04:00 Albumin 1.8 g/dL (3.4-5.0) L 10/01/21 04:00 Globulin 4.5 g/dL (2.5-4.5) 10/01/21 04:00 Albumin/Globulin Ratio 0.4 Ratio (1.1-2.1) L 10/01/21 04:00 Specimen Type Clean catch urine 09/29/21 23:40 Urine Color Yellow (YELLOW) 09/29/21 23:40 Urine Appearance Clear (CLEAR) 09/29/21 23:40 Urine pH 6.0 (5.0 - 8.0) 09/29/21 23:40 Ur Specific [place] 1.015 (1.000-1.030) 09/29/21 23:40 Urine Protein 2+ (NEGATIVE) 09/29/21 23:40 Urine Glucose (UA) Negative (NEGATIVE) 09/29/21 23:40 Urine Ketones Negative (NEGATIVE) 09/29/21 23:40 Urine Occult Blood 3+ (NEGATIVE) 09/29/21 23:40 Urine Nitrite Negative (NEGATIVE) 09/29/21 23:40 Urine Bilirubin Negative (NEGATIVE) 09/29/21 23:40 Urine Urobilinogen 1+ (NORMAL) 09/29/21 23:40 Ur Leukocyte Esterase 1+ (NEGATIVE) 09/29/21 23:40 Urine RBC 0-2 /HPF (0-3) 09/29/21 23:40 Urine WBC 3-5 /HPF (0-5) 09/29/21 23:40 Ur Squamous Epith Cells Numerous /HPF (NEGATIVE) 09/29/21 23:40 Urine Bacteria Trace /HPF (NEGATIVE) 09/29/21 23:40 Urine Mucus Few /HPF (NEGATIVE) 09/29/21 23:40 Ur Culture Indicated? No/not indicated 09/29/21 23:40 SARS CoV-2 RNA Rapid ANKIT Negative (NEGATIVE) 09/29/21 17:15 - Plan (1) Cellulitis of right lower extremity Status: Acute Plan: ZOSYN 3.375G IV TID, LIPITOR 40MG PO HS, DILAUDID 1-2MG IV Q4H PRN, TRAMADOL 100MG PO Q6H PRN, AND MOTRN 600MG PO TID PRN. (2) Pseudoaneurysm Status: Acute
[2021-10-01] MEDS: LIPITOR TAB 40 MG PO SCH (21:12)
[2021-10-01] MEDS: DILAUDID INJ IVP PRN (23:33)
[2021-10-02] MEDS: ZOSYN VIAL 3.375 GRAMS 3.375 G in NS 100 ML IV + SPIKE MINIBAG* 100 ML IV SCH (05:08)
[2021-10-02 05:23] LABS: BASOPHILS % (AUTO) 0.4 % (0.2-1.0); EOSINOPHILS # (AUTO) 0.2 x10^3/uL (0.0-0.2); EOSINOPHILS % (AUTO) 2.7 % (0.9-2.9); HEMATOCRIT 28.5 % (36.0-47.0); HEMOGLOBIN 9.6 g/dL (12.0-16.0); LYMPHOCYTES % (AUTO) 11.9 % (21.0-51.0); MEAN CORPUSCULAR HEMOGLOBIN 27.6 pg (27.0-34.0); MEAN CORPUSCULAR HGB CONC 33.6 g/dL (33.0-35.0); MEAN CORPUSCULAR VOLUME 82.2 fL (80.0-100.0); MEAN PLATELET VOLUME 7.8 fL (7.4-11.0); MONOCYTES # (AUTO) 0.6 x10^3/uL (0.3-0.8); MONOCYTES % (AUTO) 7.1 % (0.0-13.0); NEUTROPHILS # (AUTO) 6.8 x10^3/uL (2.2-4.8); NEUTROPHILS % (AUTO) 77.9 % (42.0-75.0); PLATELET COUNT 321 X10^3/uL (150.0-450.0); RED BLOOD COUNT 3.47 X10^6/uL (3.5-5.4); RED CELL DISTRIBUTION WIDTH 16.7 % (11.6-16.5); WHITE BLOOD COUNT 8.8 X10^3/uL (3.6-10.0)
[2021-10-02 05:48] LABS: ALANINE AMINOTRANSFERASE 23 Units/L (12-78); ALBUMIN 1.7 g/dL (3.4-5.0); ALKALINE PHOSPHATASE 112 Units/L (46-116); ASPARTATE AMINO TRANSFERASE 29 Units/L (15-37); BLOOD UREA NITROGEN 9 mg/dL (7-18); CALCIUM 8.2 mg/dL (8.5-10.1); CARBON DIOXIDE 27.8 mmol/L (21-32); CHLORIDE 100 mmol/L (98-107); CREATININE 0.68 mg/dL (0.55-1.02); SODIUM 135 mmol/L (136-145); TOTAL PROTEIN 6.2 g/dL (6.4-8.2); eGFR NON BLACK RACES > 60 (>60)
[2021-10-02] MEDS ORDERED: INVANZ INJ 1 GM VIAL 1 GM in NS 100 ML IV + SPIKE MINIBAG* 100 ML IV SCH (10:00)
--- NOTE | 2021-10-02 14:26 | NOTE.SOAP ---
Soap Note Note for Day of Date of Exam: 10/02/21 Subjective Data Subjective Data: I am not physically in town as I am will vacation but will be back on October 04. I am intimately aware of the patient's readmission and I hane text messages with her admitting physician, doctor Yap and phone conversations with her daughter Kusum.Her daughter received information that her mother's hemoglobin was 7 grams. It has never been 7 G. It was 9. 6 on admission and is currently 9. 6. Her white blood cell count has declined to a 7000 range. She's had very little bleeding from the wound and it appears to be all old blood. A large right femoral pseudoaneurysm has been resolved but there is a small pseudoaneurysm still present with no active bleeding. Her main reason for admission at this time is be treated with IV antibiotics probably for a cellulitis of the leg or inflammation of the aneurysm itself . Current blood cultures are negative . Wound culture growing Enterobacter . Sensitivities pending . remains on Zosyn. Objective Data Temperature: 98.8 F Pulse Rate: 86 Respiratory Rate: 20 Blood Pressure: 129/68 O2 Sat by Pulse Oximetry: 94 Objective Data: see notes of examining physicians. No active bleeding noted since yesterday which was old blood and minimal. Assessment Assessment: Right femoral pseudo aneurysm s/p thrombolysis with thrombin injection and complicated by wound infection currently on IV antibiotics with negative blood cultures and small recurrent pseudoaneurysm with no active bleeding . Plan Plan: Continue IV antibiotics and I will deal with remaining pseudoaneurysm when I am back in town 10/04/2021
[2021-10-02] MEDS: ULTRAM PO PRN (19:33)
[2021-10-02] MEDS: LIPITOR TAB 40 MG PO SCH (20:18)
[2021-10-02] MEDS: DILAUDID INJ IVP PRN (20:45)
[2021-10-02 21:02] VITALS: BP 117/72
== END 2021-10-02 21:00 | disposition critical access hospital (66) | DRG 300 ==
LOC: MED/SURG 15:19 → ER 15:19 → MED/SURG 18:10
PROVIDERS: ADMIT Internal Medicine; ATTEND Internal Medicine